=== PATIENT | male | born 1965 | race Two or more races ===

== ENCOUNTER 2016-11-27 21:12 | Emergency (ER) | payer MEDICAID ==
[~2016-11-27] VITALS: Ht 157.5 cm; Wt 97.1 kg
[2016-11-27] MEDS ORDERED: diphenhdrAMINE HCL 50 MG/1 ML VL ONE (21:52)
[2016-11-27] MEDS ORDERED: methylPREDNISolone SOD SUCC 125 MG/2 ML VL ONE (21:53)
[2016-11-27] MEDS ORDERED: diphenhdrAMINE HCL 50 MG/1 ML VL IV ONE (22:00)
[2016-11-27] MEDS ORDERED: methylPREDNISolone SOD SUCC 125 MG/2 ML VL IV ONE (22:00)
[2016-11-27] MEDS ORDERED: VANCOMYCIN 1GM/250ML D5W 250 ML IV ONE (22:15)
[2016-11-27] MEDS ORDERED: cefTRIAXone 1GM/50ML D5W 50 ML IV ONE (22:15)
[2016-11-27 22:37] LABS: Basophils # (auto) 0.2 uL; Basophils % (auto) 1.4 % (0.0-2.0); Eosinophils # (auto) 0.1 uL; Eosinophils % (auto) 0.5 % (0.0-7.0); Hematocrit 44.1 % (41.0-53.0); Hemoglobin 14.9 g/dL (13.5-17.5); Lymphocytes # (auto) 2.9 uL; Lymphocytes % (auto) 24.9 % (10.0-50.0); Mean Corpuscular Hemoglobin 31.1 pg (28.0-32.0); Mean Corpuscular Hgb Conc. 33.8 g/dL (32.0-36.0); Mean Corpuscular Volume 92.2 fL (80.0-100.0); Mean Platelet Volume 10.3 fL (6.9-10.8); Monocytes # (auto) 1.1 uL; Monocytes % (auto) 9.6 % (0.0-12.0); Neutrophils # (auto) 7.3 uL; Neutrophils % (auto) 63.6 % (37.0-80.0); Nucleated Red Blood Cells % 0.1 %; Platelet Count (auto) 131 10^3/uL (140-450); Red Cell Distribution Width 14.6 % (11.8-14.3); White Blood Cell 11.6 10^3/uL (4.4-10.8)
[2016-11-27 22:54] LABS: Albumin 3.2 g/dL (3.4-5.0); Calcium 8.2 mg/dL (8.5-10.1)
[2016-11-27 22:56] LABS: BUN/Creatinine Ratio 14.6
[2016-11-27 23:10] LABS: Bilirubin, Total 0.5 mg/dL (0.2-1.0); Total Protein 6.5 g/dL (6.4-8.2)
[2016-11-28] MEDS ORDERED: InsuLIN REG 1unit/0.01ml Soln (100units/ml) IV ONE (02:15)
[2016-11-28 04:45] VITALS: BP 106/70
== END 2016-11-28 04:46 | disposition home or self-care (01) ==
LOC: ER 21:14
DX: L02.01 Cutaneous abscess of face (principal); L03.211 Cellulitis of face; M19.90 Unspecified osteoarthritis, unspecified site; E11.9 Type 2 diabetes mellitus without complications; E78.5 Hyperlipidemia, unspecified; I10 Essential (primary) hypertension
CPT/HCPCS: 36415; 70486; 80053; 82962; 85025; 96365; 96366; 96367; 96375; 99285; J0696; J1200; J1815; J2930; J3370; J7030

== ENCOUNTER 2018-01-28 13:40 | Emergency (ER) | payer MEDICAID ==
[~2018-01-28] VITALS: Ht 157.5 cm; Wt 86.2 kg
[2018-01-28 14:44] LABS: Urine Bacteria NONE SEEN /hpf (None Seen); Urine Blood Negative /uL (Negative); Urine Specific Gravity 1.006 (1.001-1.035); Urine WBC 1 /hpf (0 - 3)
[2018-01-28 14:57] LABS: Basophils # (auto) 0 uL; Basophils % (auto) 0.3 % (0.0-2.0); Eosinophils # (auto) 0 uL; Eosinophils % (auto) 0.1 % (0.0-7.0); Hematocrit 46.4 % (41.0-53.0); Hemoglobin 15.3 g/dL (13.5-17.5); Lymphocytes # (auto) 2.1 uL; Lymphocytes % (auto) 16.4 % (10.0-50.0); Mean Corpuscular Hemoglobin 29.8 pg (28.0-32.0); Mean Corpuscular Volume 90.5 fL (80.0-100.0); Monocytes # (auto) 0.8 uL; Monocytes % (auto) 6.5 % (0.0-12.0); Neutrophils # (auto) 9.6 uL; Neutrophils % (auto) 76.7 % (37.0-80.0); Platelet Count (auto) 211 10^3/uL (140-450); Red Blood Cells 5.13 10^6/uL (4.5-5.90); Red Cell Distribution Width 15.4 % (11.8-14.3); White Blood Cell 12.5 10^3/uL (4.4-10.8)
[2018-01-28 15:03] LABS: INR 0.95 (0.9-1.15); Prothrombin Time 10.2 sec (9.27-12.13)
[2018-01-28 15:06] LABS: Alanine Aminotransferase 30 U/L (16-61); Albumin 3.7 g/dL (3.4-5.0); Anion Gap 8 (5-15); Blood Urea Nitrogen 14 mg/dL (7-18); Calcium 8.9 mg/dL (8.5-10.1); Carbon Dioxide 25 mmol/L (21-32); Chloride 104 mmol/L (98-107); Glucose 114 mg/dL (74-106); Potassium 4.3 mmol/L (3.5-5.1); Sodium 137 mmol/L (136-145)
[2018-01-28 15:11] LABS: Alkaline Phosphatase 82 U/L (45-117); Aspartate Aminotransferase 15 U/L (15-37); BUN/Creatinine Ratio 10.9; Bilirubin, Total 0.6 mg/dL (0.2-1.0); GFR African American 76 mL/min; GFR Non-African American 62 mL/min; Total Protein 7.6 g/dL (6.4-8.2)
[2018-01-28] MEDS ORDERED: traMADol HCL 50 MG TAB PO ONE (15:45)
[2018-01-28 17:18] VITALS: BP 139/90
== END 2018-01-28 18:37 | disposition home or self-care (01) ==
LOC: ER 13:41
DX: R51 Headache (principal); M06.9 Rheumatoid arthritis, unspecified; H53.8 Other visual disturbances; E11.9 Type 2 diabetes mellitus without complications; E78.5 Hyperlipidemia, unspecified; I10 Essential (primary) hypertension; Z89.519 Acquired absence of unspecified leg below knee
CPT/HCPCS: 36415; 70450; 80053; 81001; 82962; 83880; 84484; 85025; 85610; 85730

== ENCOUNTER → 2018-06-02 | Outpatient (CLI) | payer MEDICAID ==
[2018-06-02 08:37] LABS: Cholesterol 221 mg/dL (< 200)
[2018-06-02 08:39] LABS: HDL Cholesterol 42 mg/dL (40-59); LDL Cholesterol 144 mg/dL (< 100); Triglycerides 318 mg/dL (< 150)
== END | disposition home or self-care (01) ==
LOC: LAB 07:57
PROVIDERS: ATTEND Internal Medicine
DX: E11.9 Type 2 diabetes mellitus without complications (principal); I10 Essential (primary) hypertension
CPT/HCPCS: 36415; 80061; 83036

== ENCOUNTER → 2018-09-29 | Outpatient (CLI) | payer MEDICAID ==
[2018-09-29 09:08] LABS: Albumin 3.6 g/dL (3.4-5.0)
[2018-09-29 09:12] LABS: Bilirubin, Direct 0.1 mg/dL (0-0.2); Bilirubin, Total 0.6 mg/dL (0.2-1.0); Total Protein 7.4 g/dL (6.4-8.2)
== END | disposition home or self-care (01) ==
LOC: LAB 07:58
PROVIDERS: ATTEND Internal Medicine
DX: E11.9 Type 2 diabetes mellitus without complications (principal); I10 Essential (primary) hypertension; M06.9 Rheumatoid arthritis, unspecified
CPT/HCPCS: 36415; 80061; 80076; 83036

== ENCOUNTER → 2019-01-05 | Outpatient (CLI) | payer MEDICAID | END | disposition home or self-care (01) | LOC: LAB 08:19 | PROVIDERS: ATTEND Internal Medicine | DX: E11.9 Type 2 diabetes mellitus without complications (principal) | CPT/HCPCS: 36415; 83036 ==

== ENCOUNTER → 2019-02-07 | Outpatient (CLI) | payer MEDICAID ==
[2019-02-07 08:16] LABS: Basophils # (auto) 0.2 uL; Basophils % (auto) 2.3 % (0.0-2.0); Eosinophils # (auto) 0 uL; Eosinophils % (auto) 0.6 % (0.0-7.0); Hematocrit 47.3 % (41.0-53.0); Hemoglobin 16.1 g/dL (13.5-17.5); Mean Corpuscular Hemoglobin 29.7 pg (28.0-32.0); Mean Corpuscular Hgb Conc. 34.1 g/dL (32.0-36.0); Mean Corpuscular Volume 87.2 fL (80.0-100.0); Monocytes # (auto) 0.5 uL; Monocytes % (auto) 6.3 % (0.0-12.0); Neutrophils # (auto) 5.3 uL; Neutrophils % (auto) 65.8 % (37.0-80.0); Nucleated Red Blood Cells % 0.1 %; Platelet Count (auto) 157 10^3/uL (140-450); Red Blood Cells 5.43 10^6/uL (4.5-5.90); White Blood Cell 8.1 10^3/uL (4.4-10.8)
[2019-02-07 09:47] LABS: Albumin 3.8 g/dL (3.4-5.0); Calcium 8.8 mg/dL (8.5-10.1); Potassium 4.6 mmol/L (3.5-5.1)
[2019-02-07 09:50] LABS: BUN/Creatinine Ratio 10.8; Bilirubin, Total 0.6 mg/dL (0.2-1.0)
== END | disposition home or self-care (01) ==
LOC: LAB 07:50
PROVIDERS: ATTEND Internal Medicine
DX: E11.9 Type 2 diabetes mellitus without complications (principal); K92.2 Gastrointestinal hemorrhage, unspecified; R19.5 Other fecal abnormalities; I10 Essential (primary) hypertension; M19.90 Unspecified osteoarthritis, unspecified site; E78.5 Hyperlipidemia, unspecified; N48.1 Balanitis
CPT/HCPCS: 36415; 80053; 82043; 82306; 85025

== ENCOUNTER → 2019-02-18 | Outpatient (CLI) | payer MEDICAID | END | disposition home or self-care (01) | LOC: LAB 15:43 | PROVIDERS: ATTEND Internal Medicine | DX: E11.9 Type 2 diabetes mellitus without complications (principal); K92.2 Gastrointestinal hemorrhage, unspecified; R19.7 Diarrhea, unspecified | CPT/HCPCS: 82270 ==

== ENCOUNTER 2019-03-10 12:23 | Emergency (ER) | payer MEDICAID | END 2019-03-10 14:15 | disposition left against medical advice (07) | LOC: ER 12:29 | DX: H57.10 Ocular pain, unspecified eye (principal); Z53.21 Procedure and treatment not carried out due to patient leaving prior to being seen by health care provider ==

== ENCOUNTER → 2019-05-02 | Outpatient (CLI) | payer MEDICAID ==
[2019-05-02 10:03] LABS: Potassium 4.5 mmol/L (3.5-5.1)
[2019-05-02 10:08] LABS: BUN/Creatinine Ratio 13.3
== END | disposition home or self-care (01) ==
LOC: LAB 08:42
PROVIDERS: ATTEND Internal Medicine
DX: E11.9 Type 2 diabetes mellitus without complications (principal)
CPT/HCPCS: 36415; 80048; 80061; 83036

== ENCOUNTER → 2019-05-25 | Outpatient (CLI) | payer MEDICAID | END | disposition home or self-care (01) | LOC: LAB 15:36 | PROVIDERS: ATTEND Internal Medicine | DX: R07.9 Chest pain, unspecified (principal) | CPT/HCPCS: 36415; 85379 ==

== ENCOUNTER → 2019-10-14 | Outpatient (CLI) | payer MEDICAID | END | disposition home or self-care (01) | LOC: LAB 07:54 | PROVIDERS: ATTEND Internal Medicine | DX: E11.9 Type 2 diabetes mellitus without complications (principal) | CPT/HCPCS: 36415; 82043; 83036 ==

== ENCOUNTER → 2019-12-16 | Outpatient (CLI) | payer MEDICAID | END | disposition home or self-care (01) | LOC: LAB 08:04 | PROVIDERS: ATTEND Internal Medicine | DX: E11.9 Type 2 diabetes mellitus without complications (principal) | CPT/HCPCS: 36415; 83036 ==

== ENCOUNTER → 2020-04-13 | Outpatient (CLI) | payer MEDICAID ==
[2020-04-13 08:35] LABS: Cholesterol 173 mg/dL (< 200); HDL Cholesterol 40 mg/dL (40-59); LDL Cholesterol 104 mg/dL (< 100); Triglycerides 302 mg/dL (< 150)
== END | disposition home or self-care (01) ==
LOC: LAB 07:09
PROVIDERS: ATTEND Internal Medicine
DX: Z12.5 Encounter for screening for malignant neoplasm of prostate (principal); M06.9 Rheumatoid arthritis, unspecified; M25.521 Pain in right elbow
CPT/HCPCS: 36415; 80061; 83036; 84153

== ENCOUNTER → 2020-07-09 | Outpatient (CLI) | payer MEDICAID | END | disposition home or self-care (01) | LOC: LAB 07:18 | PROVIDERS: ATTEND Internal Medicine | DX: E11.9 Type 2 diabetes mellitus without complications (principal) | CPT/HCPCS: 36415; 83036 ==

== ENCOUNTER → 2020-10-31 | Outpatient (CLI) | payer MEDICAID ==
[2020-10-31 08:49] LABS: Cholesterol 142 mg/dL (< 200)
[2020-10-31 08:52] LABS: HDL Cholesterol 44 mg/dL (40-59); LDL Cholesterol 79 mg/dL (< 100); Triglycerides 162 mg/dL (< 150)
== END | disposition home or self-care (01) ==
LOC: LAB 07:45
PROVIDERS: ATTEND Internal Medicine
DX: E11.9 Type 2 diabetes mellitus without complications (principal)
CPT/HCPCS: 36415; 80061; 82043

== ENCOUNTER → 2021-05-10 | Outpatient (CLI) | payer MEDICAID ==
[2021-05-10 14:36] LABS: Potassium 4.6 mmol/L (3.5-5.1)
[2021-05-10 14:56] LABS: Albumin 3.6 g/dL (3.4-5.0); BUN/Creatinine Ratio 13.5; Calcium 9.2 mg/dL (8.5-10.1)
[2021-05-10 15:43] LABS: Bilirubin, Total 0.7 mg/dL (0.2-1.0); Total Protein 7.6 g/dL (6.4-8.2)
== END | disposition home or self-care (01) ==
LOC: LAB 09:54
PROVIDERS: ATTEND Internal Medicine
DX: Z12.11 Encounter for screening for malignant neoplasm of colon (principal); Z00.00 Encounter for general adult medical examination without abnormal findings; E11.9 Type 2 diabetes mellitus without complications; M06.9 Rheumatoid arthritis, unspecified
CPT/HCPCS: 36415; 80053; 80061; 82043; 83036; 84153

== ENCOUNTER → 2021-06-04 | Outpatient (CLI) | payer MEDICAID | END | disposition home or self-care (01) | LOC: LAB 07:45 | PROVIDERS: ATTEND Internal Medicine | DX: Z12.11 Encounter for screening for malignant neoplasm of colon (principal); Z00.00 Encounter for general adult medical examination without abnormal findings; E11.9 Type 2 diabetes mellitus without complications; M06.9 Rheumatoid arthritis, unspecified | CPT/HCPCS: 82270 ==

== ENCOUNTER → 2021-11-14 | Outpatient (CLI) | payer MEDICAID | END | disposition home or self-care (01) | LOC: LAB 07:48 | PROVIDERS: ATTEND Internal Medicine | DX: E11.9 Type 2 diabetes mellitus without complications (principal) | CPT/HCPCS: 36415; 83036 ==

== ENCOUNTER → 2022-05-05 | Outpatient (CLI) | payer MEDICAID ==
[2022-05-05 12:36] LABS: Basophils # (auto) 0.1 10 ^3/uL (0-0.2); Basophils % (auto) 0.6 % (0.0-2.0); Eosinophils # (auto) 0.1 10 ^3/uL (0-0.8); Eosinophils % (auto) 1.2 % (0.0-7.0); Hematocrit 44.6 % (41.0-53.0); Hemoglobin 15.3 g/dL (13.5-17.5); Lymphocytes # (auto) 3.8 10 ^3/uL (0.4-5.4); Lymphocytes % (auto) 42.3 % (10.0-50.0); Mean Corpuscular Hemoglobin 31.4 pg (28.0-32.0); Mean Corpuscular Hgb Conc. 34.3 g/dL (32.0-36.0); Mean Corpuscular Volume 91.6 fL (80.0-100.0); Monocytes # (auto) 0.7 10 ^3/uL (0-1.3); Monocytes % (auto) 8.3 % (0.0-12.0); Neutrophils # (auto) 4.3 10 ^3/uL (1.6-8.6); Neutrophils % (auto) 47.6 % (37.0-80.0); Nucleated Red Blood Cells % 0.1 %; Red Blood Cells 4.87 10^6/uL (4.5-5.90)
[2022-05-05 12:46] LABS: Urine Bacteria FEW /hpf (None Seen); Urine Blood Negative /uL (Negative); Urine Specific Gravity 1.012 (1.001-1.035); Urine WBC <1 /hpf (0 - 3)
[2022-05-05 12:58] LABS: Albumin 3.6 g/dL (3.4-5.0); Potassium 4.5 mmol/L (3.5-5.1)
[2022-05-05 13:05] LABS: BUN/Creatinine Ratio 13.6; Bilirubin, Total 0.9 mg/dL (0.2-1.0); Calcium 9.2 mg/dL (8.5-10.1); Total Protein 7.5 g/dL (6.4-8.2)
== END | disposition home or self-care (01) ==
LOC: LAB 11:40
PROVIDERS: ATTEND Internal Medicine
DX: Z12.11 Encounter for screening for malignant neoplasm of colon (principal); E11.9 Type 2 diabetes mellitus without complications; M06.9 Rheumatoid arthritis, unspecified
CPT/HCPCS: 36415; 80053; 80061; 81001; 82043; 82270; 83036; 84153; 85025

== ENCOUNTER → 2022-07-21 | Outpatient (CLI) | payer MEDICAID ==
[2022-07-21 08:18] LABS: Albumin 3.5 g/dL (3.4-5.0)
[2022-07-21 08:25] LABS: BUN/Creatinine Ratio 14.8 (10.0-20.0); Bilirubin, Total 0.4 mg/dL (0.2-1.0); Calcium 9.2 mg/dL (8.5-10.1); Total Protein 6.9 g/dL (6.4-8.2)
== END | disposition home or self-care (01) ==
LOC: LAB 07:26
PROVIDERS: ATTEND Internal Medicine
DX: E11.9 Type 2 diabetes mellitus without complications (principal)
CPT/HCPCS: 36415; 80053; 80061; 83036

== ENCOUNTER → 2022-08-07 | Outpatient (CLI) | payer MEDICAID ==
[2022-08-07 13:31] LABS: BUN/Creatinine Ratio 14.2 (10.0-20.0); Calcium 8.9 mg/dL (8.5-10.1); Potassium 4.3 mmol/L (3.5-5.1)
== END | disposition home or self-care (01) ==
LOC: LAB 12:43
PROVIDERS: ATTEND Internal Medicine
DX: E11.9 Type 2 diabetes mellitus without complications (principal)
CPT/HCPCS: 36415; 80048

== ENCOUNTER → 2022-08-22 | Day surgery (SDC) | payer MEDICAID ==
[2022-08-21 09:27] LABS: Basophils # (auto) 0.1 10 ^3/uL (0-0.2); Basophils % (auto) 0.8 % (0.0-2.0); Eosinophils # (auto) 0.1 10 ^3/uL (0-0.8); Eosinophils % (auto) 1.4 % (0.0-7.0); Hematocrit 49.6 % (41.0-53.0); Hemoglobin 16.5 g/dL (13.5-17.5); Lymphocytes # (auto) 2.8 10 ^3/uL (0.4-5.4); Lymphocytes % (auto) 36.5 % (10.0-50.0); Mean Corpuscular Hemoglobin 30.1 pg (28.0-32.0); Mean Corpuscular Hgb Conc. 33.2 g/dL (32.0-36.0); Mean Corpuscular Volume 90.6 fL (80.0-100.0); Monocytes # (auto) 0.8 10 ^3/uL (0-1.3); Monocytes % (auto) 10.4 % (0.0-12.0); Neutrophils # (auto) 3.9 10 ^3/uL (1.6-8.6); Neutrophils % (auto) 50.9 % (37.0-80.0); Red Blood Cells 5.47 10^6/uL (4.5-5.90); Red Cell Distribution Width 14.9 % (11.8-14.3); White Blood Cell 7.7 10^3/uL (4.4-10.8)
[2022-08-21 10:14] LABS: Albumin 3.8 g/dL (3.4-5.0); Calcium 9.3 mg/dL (8.5-10.1)
[2022-08-21 10:17] LABS: BUN/Creatinine Ratio 13.9 (10.0-20.0); Bilirubin, Total 0.5 mg/dL (0.2-1.0); Potassium 5.3 mmol/L (3.5-5.1); Total Protein 7.9 g/dL (6.4-8.2)
[2022-08-21 10:28] LABS: INR 0.92 (0.9-1.15); Partial Thromboplastin Time 27.6 sec (24.6-33.4)
[~2022-08-22] VITALS: Ht 165.1 cm; Wt 89.8 kg
[~2022-08-22] MED LIST: ADAL40IN2 SC; AML5T PO; ATOR20TA50 PO; DexAMETHasone SOD PHOS 10MG/1ML VIAL INJ ONE; ENAL5TAB22 PO; FLUMAZENIL 0.1 MG/ML INJ 10ML MDV IV ONE; FOLI-119 PO; GABA-1308 PO; INS7030I SC; INSUINJ37 SC; MEPERIDINE HCL (25 MG/ML) 1ML VIAL ONE; METF-490 PO; METH2.5T PO; MIDAZOLAM HCL 2MG/2ML 2ml VIAL (1mg/ml) ONE; NALOXONE HCL 0.4 MG/ML VIAL ONE; PRE1T PO; PROPOFOL 10 MG/ML 20 ML IV ONE; fentaNYL CITRATE 100 MCG/2 ML VL ONE
[2022-08-22] MEDS: MIDAZOLAM HCL 2MG/2ML 2ml VIAL (1mg/ml) ONE ×3 (12:17→12:32)
[2022-08-22] MEDS: diphenhdrAMINE HCL 50 MG/1 ML VL ONE ×2 (12:17→12:20)
[2022-08-22] MEDS: fentaNYL CITRATE 100 MCG/2 ML VL ONE ×2 (12:17→12:22)
[2022-08-22 13:15] VITALS: BP 125/78
== END | disposition home or self-care (01) ==
LOC: GI 09:59
PROVIDERS: ATTEND Internal Medicine Gastroenterology
DX: Z12.11 Encounter for screening for malignant neoplasm of colon (principal); K63.5 Polyp of colon; K64.8 Other hemorrhoids; I10 Essential (primary) hypertension; E78.5 Hyperlipidemia, unspecified; M19.90 Unspecified osteoarthritis, unspecified site; E11.9 Type 2 diabetes mellitus without complications; Z79.4 Long term (current) use of insulin; Z79.84 Long term (current) use of oral hypoglycemic drugs; Z79.899 Other long term (current) drug therapy; Z98.890 Other specified postprocedural states
CPT/HCPCS: 36415; 45385; 80053; 82962; 84132; 85025; 85610; 85730; 88305; J1100; J1200; J2250; J2704; J3010; J7030; 99152

== ENCOUNTER → 2022-11-03 | Outpatient (CLI) | payer MEDICAID ==
[~2022-11-03] MED LIST changes: -DexAMETHasone SOD PHOS 10MG/1ML VIAL INJ ONE; -FLUMAZENIL 0.1 MG/ML INJ 10ML MDV IV ONE; -MEPERIDINE HCL (25 MG/ML) 1ML VIAL ONE; -MIDAZOLAM HCL 2MG/2ML 2ml VIAL (1mg/ml) ONE; -NALOXONE HCL 0.4 MG/ML VIAL ONE; -PROPOFOL 10 MG/ML 20 ML IV ONE; -fentaNYL CITRATE 100 MCG/2 ML VL ONE
[2022-11-03 09:05] LABS: Albumin 3.7 g/dL (3.4-5.0); Calcium 9.2 mg/dL (8.5-10.1)
[2022-11-03 09:10] LABS: BUN/Creatinine Ratio 13.4 (10.0-20.0); Bilirubin, Total 0.5 mg/dL (0.2-1.0); Total Protein 7.7 g/dL (6.4-8.2)
== END | disposition home or self-care (01) ==
LOC: LAB 08:18
PROVIDERS: ATTEND Internal Medicine
DX: E11.22 Type 2 diabetes mellitus with diabetic chronic kidney disease (principal); N18.30 Chronic kidney disease, stage 3 unspecified
CPT/HCPCS: 36415; 80053; 80061

== ENCOUNTER → 2023-04-29 | Outpatient (CLI) | payer MEDICAID ==
[2023-04-29 07:52] LABS: Anion Gap 4 (5-15); Carbon Dioxide 28 mmol/L (20-30); Chloride 107 mmol/L (98-107); Sodium 139 mmol/L (136-145)
[2023-04-29 07:53] LABS: Calcium 9.3 mg/dL (8.5-10.1)
[2023-04-29 07:57] LABS: Creatinine, Urine 61.87 mg/dL (30.0-125.0)
[2023-04-29 07:58] LABS: BUN/Creatinine Ratio 11.9 (10.0-20.0); Blood Urea Nitrogen 16 mg/dL (9-23); Glucose 98 mg/dL (74-106); Triglycerides 261 mg/dL (< 150)
[2023-04-29 07:59] LABS: LDL Cholesterol 148 mg/dL (< 100)
[2023-04-29 08:00] LABS: Cholesterol 217 mg/dL (< 200); HDL Cholesterol 40 mg/dL (40-59)
== END | disposition home or self-care (01) ==
LOC: LAB 07:01
PROVIDERS: ATTEND Internal Medicine
DX: E11.9 Type 2 diabetes mellitus without complications (principal)
CPT/HCPCS: 36415; 80048; 80061; 82043; 82570; 83036

== ENCOUNTER → 2023-07-28 | Outpatient (CLI) | payer MEDICAID ==
[2023-07-28 08:45] LABS: Albumin 4.4 g/dL (3.2-4.8)
[2023-07-28 08:46] LABS: Bilirubin, Direct 0.1 mg/dL (<0.3); Bilirubin, Total 0.6 mg/dL (0.2-1.0); Total Protein 7.3 g/dL (5.7-8.2)
== END | disposition home or self-care (01) ==
LOC: LAB 06:10
PROVIDERS: ATTEND Internal Medicine
DX: E11.9 Type 2 diabetes mellitus without complications (principal); E78.5 Hyperlipidemia, unspecified
CPT/HCPCS: 36415; 80061; 80076; 83036

== ENCOUNTER → 2023-11-03 | Outpatient (CLI) | payer MEDICAID | END | disposition home or self-care (01) | LOC: LAB 07:59 | PROVIDERS: ATTEND Internal Medicine | DX: Z12.11 Encounter for screening for malignant neoplasm of colon (principal); E11.22 Type 2 diabetes mellitus with diabetic chronic kidney disease; N18.2 Chronic kidney disease, stage 2 (mild); E78.5 Hyperlipidemia, unspecified | CPT/HCPCS: 82270 ==

== ENCOUNTER → 2023-12-11 | Outpatient (CLI) | payer MEDICAID ==
[2023-12-11 06:17] LABS: Urine Bacteria None Seen /hpf (None Seen)
[2023-12-11 06:42] LABS: Urine Blood Negative /uL (Negative); Urine Clarity Clear (Clear); Urine Color Light-Yellow (Yellow); Urine Protein, UAD TRACE (Negative); Urine Specific Gravity 1.016 (1.001-1.035); Urine Urobilinogen Normal (Negative); Urine WBC <1 /hpf (0 - 3); Urine pH 5.5 (5.0-9.0)
[2023-12-11 07:01] LABS: Chloride 107 mmol/L (98-107); Potassium 4.7 mmol/L (3.5-5.1); Sodium 140 mmol/L (136-145)
[2023-12-11 07:02] LABS: Anion Gap 6 (5-15); Carbon Dioxide 27 mmol/L (20-31)
[2023-12-11 07:03] LABS: Calcium 9.5 mg/dL (8.7-10.4)
[2023-12-11 07:07] LABS: Amylase 148 U/L (30-118); BUN/Creatinine Ratio 11.2 (10.0-20.0); Blood Urea Nitrogen 17 mg/dL (9-23); Glucose 126 mg/dL (74-106)
[2023-12-11 07:09] LABS: CRP High Sensitivity 0.06 mg/dL (<1.0)
[2023-12-11 07:21] LABS: Uric Acid 7.5 mg/dL (3.7-9.2)
[2023-12-11 07:22] LABS: Lipase 51 U/L (12-53)
[2023-12-11 07:46] LABS: Erythrocyte Sedimentation Rate 4 mm/hr (0-20)
== END | disposition home or self-care (01) ==
LOC: LAB 05:59
PROVIDERS: ATTEND Internal Medicine
DX: E11.22 Type 2 diabetes mellitus with diabetic chronic kidney disease (principal); N18.30 Chronic kidney disease, stage 3 unspecified; R10.9 Unspecified abdominal pain; E78.5 Hyperlipidemia, unspecified; M06.9 Rheumatoid arthritis, unspecified
CPT/HCPCS: 36415; 80048; 81001; 82150; 83690; 84550; 85652; 86141

== ENCOUNTER → 2024-02-18 | Outpatient (CLI) | payer MEDICAID ==
[2024-02-18 07:06] LABS: Amylase 160 U/L (30-118)
[2024-02-18 09:25] LABS: Lipase 53 U/L (12-53)
== END | disposition home or self-care (01) ==
LOC: LAB 06:06
PROVIDERS: ATTEND Internal Medicine
DX: E11.9 Type 2 diabetes mellitus without complications (principal); R10.9 Unspecified abdominal pain
CPT/HCPCS: 36415; 82150; 83036; 83690

== ENCOUNTER → 2024-05-24 | Outpatient (CLI) | payer MEDICAID ==
[2024-05-24 07:38] LABS: Alanine Aminotransferase 18 U/L (7-40); Albumin 4.7 g/dL (3.2-4.8); Alkaline Phosphatase 101 U/L (46-116); Anion Gap 8 (5-15); Blood Urea Nitrogen 17 mg/dL (9-23); Calcium 10.1 mg/dL (8.7-10.4); Carbon Dioxide 27 mmol/L (20-31); Chloride 104 mmol/L (98-107); Cholesterol 172 mg/dL (< 200); Potassium 4.1 mmol/L (3.5-5.1); Sodium 139 mmol/L (136-145); Total Protein 7.6 g/dL (5.7-8.2); Triglycerides 108 mg/dL (< 150)
[2024-05-24 07:39] LABS: Aspartate Aminotransferase 10 U/L (13-40); Bilirubin, Total 0.6 mg/dL (0.2-1.0); Glucose 150 mg/dL (74-106); HDL Cholesterol 39 mg/dL (40-59); LDL Cholesterol 118 mg/dL (< 100)
[2024-05-24 07:52] LABS: Creatinine, Urine 70.82 mg/dL (30.0-125.0)
== END | disposition home or self-care (01) ==
LOC: LAB 06:24
PROVIDERS: ATTEND Internal Medicine
DX: E11.9 Type 2 diabetes mellitus without complications (principal); E78.5 Hyperlipidemia, unspecified; K76.0 Fatty (change of) liver, not elsewhere classified
CPT/HCPCS: 36415; 80053; 80061; 82043; 82570; 83036

== ENCOUNTER 2024-08-23 06:37 | Emergency (ER) | payer MEDICAID ==
[~2024-08-23] VITALS: Ht 165.1 cm; Wt 78.9 kg
--- NOTE | 2024-08-23 07:43 | ED.PDOC ---
SOB-HPI HPI Comments 58 y/o Malian speaking M presents with son for 3x day history of flu-like symptoms, that include: fevers, chills, fatigue, back pain, and intermittent shortness of breath. No endorsement of medication use to manage symptoms during 3x day period. Patient admits to 2x known recent sick contacts at home. He reports significant history of DMII and rheumatoid arthritis. Denies history of pneumonia or recent international travel. Patient denies any night sweats, unintentional weight loss, chest pain, leg swelling, cough, or further associated symptoms. Chief Complaint: Flu like Time Seen by MD: 07:30 Primary Care Provider: AGUSTOK Reviewed notes: Nurses Notes, Medications, Allergies Information Source: Patient, Relative (Child) Mode of Arrival: Ambulatory Severity: Mild Timing: Days Duration: Since onset Past Medical History PAST MEDICAL HISTORY: Arthritis (rheumatoid ), DM (type II), High Lipids, HTN Surgical History: BKA, Denies all surgeries Family History Family History: Unknown Family History (Other): arthritis Social History Smoker: Non-Smoker Alcohol: Denies ETOH Use Drugs: Denies Drug Use Lives In: Home All Other Systems: Reviewed and Negative (As per HPI) Physical Exam General Appearance: No Apparent Distress, Normal HEENT: Normal ENT Inspection, TMs Normal, Other (MMM, uvula midline, no airway obstruction) Neck: Full Range of Motion, Non-Tender, Normal, Normal Inspection Respiratory: Chest Non-Tender, Lungs Clear, No Accessory Muscle Use, No Respiratory Distress, Normal Breath Sounds Cardiovascular: No Edema, No JVD, No Murmur, No Gallop, Normal Peripheral Pulses, Regular Rate/Rhythm Breast Exam: Deferred Gastrointestinal: No Organomegaly, Non Tender, No Pulsatile Mass, Normal Bowel Sounds, Soft Genitalia: Deferred Pelvic: Deferred Rectal: Deferred Extremities: No calf tenderness, Normal capillary refill, Normal inspection, Normal range of motion, Non-tender, No pedal edema Musculoskeletal : Apperance: Normal Neurologic: Alert, 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 Was a procedure done?: No Differential Dx Differential Diagnosis: Anxiety, Bronchitis, Panic Attack, Pneumonia, Respiratory Distress, Pharyngitis, URI X-Ray, Labs, Meds, VS Vital Signs Date Time Temp Pulse Resp B/P (MAP) Pulse Ox O2 Delivery O2 Flow Rate FiO2 08/23/24 08:39 98.9 65 16 122/68 (86) 96 98.9 08/23/24 08:39 68 16 96 Room Air 08/23/24 07:00 98.5 92 16 126/69 (88) 96 98.5 Lab Test 08/23/24 07:49 08/23/24 06:50 Range/Units White Blood Count 5.1 4.4-10.8 10^3/uL Red Blood Count 5.34 4.5-5.90 10^6/uL Hemoglobin 16.5 13.5-17.5 g/dL Hematocrit 48.6 41.0-53.0 % Mean Corpuscular Volume 91.0 80.0-100.0 fL Mean Corpuscular Hemoglobin 30.9 28.0-32.0 pg Mean Corpuscular Hemoglobin Concent 34.0 32.0-36.0 g/dL Red Cell Distribution Width 14.2 11.8-14.3 % Platelet Count 195 140-450 10^3/uL Mean Platelet Volume 8.2 6.9-10.8 fL Neutrophils (%) (Auto) 68.2 37.0-80.0 % Lymphocytes (%) (Auto) 19.6 10.0-50.0 % Monocytes (%) (Auto) 11.8 0.0-12.0 % Eosinophils (%) (Auto) 0.0 0.0-7.0 % Basophils (%) (Auto) 0.4 0.0-2.0 % Neutrophils # (Auto) 3.5 1.6-8.6 10 ^3/uL Lymphocytes # (Auto) 1.0 0.4-5.4 10 ^3/uL Monocytes # (Auto) 0.6 0-1.3 10 ^3/uL Eosinophils # (Auto) 0 0-0.8 10 ^3/uL Basophils # (Auto) 0 0-0.2 10 ^3/uL Nucleated Red Blood Cells 0.1 % Sodium Level 137 136-145 mmol/L Potassium Level 4.5 3.5-5.1 mmol/L Chloride Level 101 98-107 mmol/L Carbon Dioxide Level 26 20-31 mmol/L Anion Gap 10 5-15 Blood Urea Nitrogen 22 9-23 mg/dL Creatinine 1.71 H 0.700-1.30 mg/dL Glomerular Filtration Rate Calc 46 >90 mL/min BUN/Creatinine Ratio 12.9 10.0-20.0 Serum Glucose 189 H 74-106 mg/dL Calcium Level 10.3 8.7-10.4 mg/dL Influenza Type A Antigen Negative Negative Influenza Type B Antigen Negative Negative SARS-CoV-2 Antigen (Rapid) Negative NEGATIVE [place] [id number] Ph: [phone] DIAGNOSTIC IMAGING Diagnostic Imaging Report : [id number] Signed PATIENT: MARIO KAUR ACCT: [id number] UNIT: [id number] : 1965 LOC: ER ROOM / BED: / AGE / SEX: 58 / M ADM STATUS: REG ER SERVICE [id number] ORDERING PHYSICIAN: ANCELMO HOPKINS NP PROCEDURE(s): CXR2 - CHEST TWO VIEWS ROUTINE REASON: Cough, fevers, R/o pna ORDER NUMBER(s): [id number], ACCESSION NUMBER(s): [id number] XY CHEST TWO VIEWS ROUTINE CLINICAL HISTORY: Cough, fevers, R/o pna COMPARISON: None TECHNIQUE: Frontal and lateral view of the chest was obtained FINDINGS: Lines and Tubes: None Lungs: No focal consolidation. Pleura: No effusion. No pneumothorax. Cardiomediastinal contours: Unremarkable Bones: No acute osseous abnormality. IMPRESSION: 1. No acute cardiopulmonary disease. ATED BY: JESSICA BOOTH MD DICTATED DATE/TIME: 08/23/24803 SIGNED BY: JESSICA BOOTH MD SIGNED DATE/TIME: 08/23/24803 CC: X-Ray, Labs, Meds, VS Comment 58 y/o Malian speaking M presents with son for 3x day history of flu-like symptoms, that include: fevers, chills, fatigue, back pain, and intermittent shortness of breath Patient arrives alert and oriented, ABC's intact, afebrile, vital signs stable, saturating well in room air Labs were ordered. CBC was ordered to exclude anemia, blood loss, or infection. BMP was ordered to exclude electrolyte abnormalities, renal failure, dehydration, hyperglycemia Influenza and COVID tests were ordered Diagnostic imaging ordered by me and results interpreted by radiology: Chest x- ray ordered Labs in the ED showed: GFR 46, creatinine of 1.71. Due to patient being immunocompromised, I will prescribed a patient Augmentin BID for 7x days. The patient is overall well-appearing nontoxic on exam. On physical exam, respirations even and unlabored, clear to auscultation bilaterally. Oxygen stable on room air. Chest x-ray was obtained and interpreted independently by myself as not showing focal consolidation or lobar pneumonia Low suspicion of strep pharyngitis given physical exam findings and patient's presenting symptoms No signs of meningismus on exam Overall, the patient is well hydrated and nontoxic. Plan for symptomatic control for fever and pain as needed. The patient was able to tolerate p.o. intake in the ED. at this time, patient is safe for discharge home. The exam findings and plan discussed. We will discharge home with PCP follow up and strict return precautions. Additional MDM Review of External, Non-ED records: External records reviewed. Discussion with independent historian (EMS, family) history obtained from the patient/parents (if applicable) at bedside Chronic conditions affecting care: DM and RA Social determinants of health affecting care: None Consideration of admission (observation or admission): I considered escalation of care to admission for this patient, however given the reassuring workup, the patient is safe for outpatient management. Time of 1ST Reevaluation: 07:30 Reevaluation 1ST: Unchanged Patient Education/Counseling: Diagnosis, Treatment, Need For Follow Up Family Education/Counseling: Diagnosis, Treatment, Need For Follow Up Departure 1 Departure Time of Disposition: 08:30 Impression: Primary Impression: Viral syndrome Disposition: 01 HOME / SELF CARE / HOMELESS Condition: Fair e-Prescriptions Amoxicillin & Pot Clavulanate (AUGMENTIN TABLET) 875 Mg Tb 875 MG PO BID for 7 Days, #14 TAB 0 Refills Prov: ANCELMO HOPKINS NP 08/23/24 Discharged With: Relative (son) Critical Care Note Critical Care Time?: No Stability Stability form required: No Heart Score Heart Score: Heart Score Response (Comments) Value History N/A 0 EKG N/A 0 Age N/A 0 Risk Factors N/A 0 Troponin N/A 0 Total 0 I personally scribed for ANCELMO HOPKINS NP ([email or web address]) on 08/23/24 at 07:43. Electronically submitted by Maik Love ([email or web address]). I personally scribed for ANCELMO HOPKINS NP ([email or web address]) on 08/23/24 at 08:45. Electr onically submitted by Maik Love ([email or web address]). ANCELMO HOPKINS NP Aug 23, 2024 07:43
[2024-08-23 07:46] LABS: COVID19 ANTIGEN SOFIA FIA NEGATIVE (NEGATIVE); Rapid Influenza A Negative (Negative); Rapid Influenza B Negative (Negative)
--- NOTE | 2024-08-23 08:07 | DVH ---
XY CHEST TWO VIEWS ROUTINE CLINICAL HISTORY: Cough, fevers, R/o pna COMPARISON: None TECHNIQUE: Frontal and lateral view of the chest was obtained FINDINGS: Lines and Tubes: None Lungs: No focal consolidation. Pleura: No effusion. No pneumothorax. Cardiomediastinal contours: Unremarkable Bones: No acute osseous abnormality. IMPRESSION: 1. No acute cardiopulmonary disease.
[2024-08-23 08:12] LABS: Basophils # (auto) 0 10 ^3/uL (0-0.2); Basophils % (auto) 0.4 % (0.0-2.0); Eosinophils # (auto) 0 10 ^3/uL (0-0.8); Hematocrit 48.6 % (41.0-53.0); Hemoglobin 16.5 g/dL (13.5-17.5); Lymphocytes % (auto) 19.6 % (10.0-50.0); Mean Corpuscular Hemoglobin 30.9 pg (28.0-32.0); Monocytes # (auto) 0.6 10 ^3/uL (0-1.3); Monocytes % (auto) 11.8 % (0.0-12.0); Neutrophils # (auto) 3.5 10 ^3/uL (1.6-8.6); Neutrophils % (auto) 68.2 % (37.0-80.0); Nucleated Red Blood Cells % 0.1 %; Platelet Count (auto) 195 10^3/uL (140-450); Red Blood Cells 5.34 10^6/uL (4.5-5.90); Red Cell Distribution Width 14.2 % (11.8-14.3); White Blood Cell 5.1 10^3/uL (4.4-10.8)
[2024-08-23 08:19] LABS: Chloride 101 mmol/L (98-107); Potassium 4.5 mmol/L (3.5-5.1); Sodium 137 mmol/L (136-145)
[2024-08-23 08:20] LABS: Anion Gap 10 (5-15); Calcium 10.3 mg/dL (8.7-10.4); Carbon Dioxide 26 mmol/L (20-31)
[2024-08-23 08:25] LABS: BUN/Creatinine Ratio 12.9 (10.0-20.0); Blood Urea Nitrogen 22 mg/dL (9-23)
[2024-08-23] MEDS ORDERED: AUG875T PO (08:30)
[2024-08-23 08:36] LABS: Glucose 189 mg/dL (74-106)
[2024-08-23 08:39] VITALS: BP 122/68; PULSE 68; RESP 16; TEMP 98.9; O2SAT 96
== END 2024-08-23 08:42 | disposition home or self-care (01) ==
LOC: ER 06:37
DX: B34.9 Viral infection, unspecified (principal); E11.9 Type 2 diabetes mellitus without complications; I10 Essential (primary) hypertension; E78.5 Hyperlipidemia, unspecified; M06.9 Rheumatoid arthritis, unspecified; Z20.822 Contact with and (suspected) exposure to COVID-19
CPT/HCPCS: 36415; 71046; 80048; 85025; 87426; 87804

== ENCOUNTER 2024-08-29 17:59 | Inpatient (IN) | payer MEDICAID ==
[~2024-08-29] VITALS: Ht 162.6 cm; Wt 86.0 kg
[~2024-08-29 17:59] MED LIST changes: +ADAL40KI2 SC; +ATOR40TA52 PO; +AUG875T PO; +EMPA1TAB PO; +EZET-10 PO; +FENO48TA13 PO; +FINE10TA PO; +METH2.5T62 PO; +PANT40T PO
--- NOTE | 2024-08-29 18:38 | ED.PDOC ---
History of Present Illness HPI Comments 58 year old male presents to the ED with a chief complaint of fevers onset 2 weeks. Son states the patient has been experiencing fevers, chills, headache, neck pain, chills, sweats, loss of appetite, fatigue for the past 2 weeks, began experiencing cough 4 days ago. Patient was seen in this ED on 08/23/24, was prescribed Augmentin. Patient has been taking medication as prescribed, has not noticed an improvement on symptoms. He returned from work today, son noticed patient appeared lethargic, was brought to the ED. PMHx arthritis, DM, HTN, HLD. No other symptoms or modifying factors present at this time. Chief Complaint: Flu like Time Seen by MD: 18:30 Primary Care Provider: ANGY Reviewed Notes: Medications, Allergies Allergies: Coded Allergies: NO KNOWN ALLERGIES (Unverified , 04/11/14) Home Meds Active Scripts Amoxicillin & Pot Clavulanate (AUGMENTIN TABLET) 875 Mg Tb, 875 MG PO BID for 7 Days, #14 TAB 0 Refills Prov:ANCELMO HOPKINS [employer] 08/23/24 Reported Medications Enalapril Maleate (Enalapril Maleate) 5 Mg Tab, 5 MG PO DAILY, TAB 08/21/22 Prednisone (PREDNISONE) 1 Mg Tb, 8 TAB PO DAILY, #120 TAB 3 Refills 08/21/22 Methotrexate (Methotrexate) 2.5 Mg Tab, 2.5 MG PO QWEEKLY, #7 TAB 08/21/22 Metformin Hydrochloride (METFORMIN HCL ER) 1,000 Mg Tab, 1000 MG PO BIDBRS, TAB 08/21/22 Insulin Glargine (Lantus Solostar) 100 Unit/Ml Inj, 20 UNIT SC BID, INJ 08/21/22 Insulin Isophane & Reg (Human) (Humulin 70/30 (70-30) 100 Unit/ml) 1 Units/0.01 Ml Inj, 5 UNITS SC QAM, INJ 08/21/22 Adalimumab (Humira Pen) 40 Mg/0.4 Ml Inj, 40 MG SC, INJ 08/21/22 Gabapentin (Gabapentin) 100 Mg Cap, 100 MG PO TID, CAP 08/21/22 Folic Acid (Folic Acid) 1 Mg Tab, 1 MG PO DAILY, TAB 08/21/22 Atorvastatin Calcium (ATORVASTATIN CALCIUM) 20 Mg Tab, 20 MG PO DAILY, TAB 08/21/22 Amlodipine Besylate (NORVASC TABLET) 5 Mg Tb, 5 MG PO DAILY, TAB 08/21/22 Information Source: Patient, Relative (Child) Mode of Arrival: Ambulatory Severity: Moderate Timing: Weeks Duration: Since onset Prehospital treatment: Treatment (Augmentin) Past Medical History PAST MEDICAL HISTORY: Arthritis, DM, High Lipids, HTN Surgical History: BKA, Denies all surgeries Family History Family History: Unknown Family History (Other): arthritis Social History Smoker: Non-Smoker Alcohol: Denies ETOH Use Drugs: Denies Drug Use Lives In: Home Constitutional: reports: chills, fatigue, fever, sweats; denies: diaphoresis, malaise, weakness, others EENTM: denies: blurred vision, double vision, ear bleeding, ear discharge, ear drainage, ear pain, ear ringing, eye pain, eye redness, hearing loss, mouth pain, mouth swelling, nasal discharge, nose bleeding, nose congestion, nose pain, photophobia, tearing, throat pain, throat swelling, voice changes, others Respiratory: denies: cough, hemoptysis, orthopnea, SOB at rest, shortness of breath, SOB with excertion, stridor, wheezing, others Cardiovascular: denies: chest pain, dizzy spells, diaphoresis, Dyspnea on exertion, edema, irregular heart beat, left arm pain, lightheadedness, palpitations, PND, syncope, others Gastrointestinal: reports: poor appetite; denies: abdomen distended, abdominal pain, blood streaked bowels, constipated, diarrhea, dysphagia, difficulty swallowing, hematemesis, melena, nausea, poor fluid intake, rectal bleeding, rectal pain, vomiting, others Genitourinary: denies: burning, dysuria, flank pain, frequency, hematuria, incontinence, penile discharge, penile sore, pain, testicle pain, testicle swelling, urgency, others Neurological: reports: headache; denies: dizziness, fainting, left sided numbness, left sided weakness, numbness, paresthesia, pre-existing deficit, right sided numbness, right sided weakness, seizure, speech problems, tingling, tremors, weakness, others Musculoskeletal: reports: neck pain; denies: back pain, gout, joint pain, joint swelling, muscle pain, muscle stiffness, others Integumetry: denies: bruises, change in color, change in hair/nails, dryness, laceration, lesions, lumps, rash, wounds, others Allergic/Immunocompromised: denies: Difficulty Healing, Frequent Infections, Hives, Itching, others Hematologic/Lymphatic: denies: anemia, blood clots, easy bleeding, easy bruising, swollen glands, others Endocrine: denies: excessive hunger, excessive sweating, excessive thirst, excessive urination, flushing, intolerance to cold, intolerance to heat, unexplained weight gain, unexplained weight loss, others Psychiatric: denies: anxiety, bipolar disorder, depression, hopeless, panic disorder, schizophrenia, sleepless, suicidal, others All Other Systems: Reviewed and Negative Physical Exam General Appearance: Normal HEENT: Normal ENT Inspection, Pharynx Normal, TMs Normal Neck: Full Range of Motion, Non-Tender, Normal, Normal Inspection Respiratory: Chest Non-Tender, Lungs Clear, No Accessory Muscle Use, No Respiratory Distress, Normal Breath Sounds Cardiovascular: No Edema, No JVD, No Murmur, No Gallop, Normal Peripheral Puls es, Regular Rate/Rhythm Breast Exam: Deferred Gastrointestinal: No Organomegaly, Non Tender, No Pulsatile Mass, Normal Bowel Sounds, Soft Genitalia: Deferred Pelvic: Deferred Rectal: Deferred Extremities: No calf tenderness, Normal capillary refill, Normal inspection, Normal range of motion, Non-tender, No pedal edema Musculoskeletal : Apperance: Normal 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 Was a procedure done?: No Differential Dx Considerations may include: Differential diagnosis includes but is not limited to: dehydration, sepsis, electrolyte abnormality, symptomatic anemia, hypovolemia and others X-Ray, Labs, Meds, VS Vital Signs Date Time Temp Pulse Resp B/P (MAP) Pulse Ox O2 Delivery O2 Flow Rate FiO2 08/29/24 18:20 99.6 102 18 114/71 (85) 95 99.6 Lab Test 08/29/24 19:04 08/29/24 18:25 Range/Units White Blood Count 6.2 4.4-10.8 10^3/uL Red Blood Count 5.11 4.5-5.90 10^6/uL Hemoglobin 15.8 13.5-17.5 g/dL Hematocrit 46.1 41.0-53.0 % Mean Corpuscular Volume 90.0 80.0-100.0 fL Mean Corpuscular Hemoglobin 30.9 28.0-32.0 pg Mean Corpuscular Hemoglobin Concent 34.3 32.0-36.0 g/dL Red Cell Distribution Width 14.2 11.8-14.3 % Platelet Count 225 140-450 10^3/uL Mean Platelet Volume 8.1 6.9-10.8 fL Neutrophils (%) (Auto) 70.3 37.0-80.0 % Lymphocytes (%) (Auto) 16.6 10.0-50.0 % Monocytes (%) (Auto) 12.7 H 0.0-12.0 % Eosinophils (%) (Auto) 0.1 0.0-7.0 % Basophils (%) (Auto) 0.3 0.0-2.0 % Neutrophils # (Auto) 4.3 1.6-8.6 10 ^3/uL Lymphocytes # (Auto) 1.0 0.4-5.4 10 ^3/uL Monocytes # (Auto) 0.8 0-1.3 10 ^3/uL Eosinophils # (Auto) 0 0-0.8 10 ^3/uL Basophils # (Auto) 0 0-0.2 10 ^3/uL Nucleated Red Blood Cells 0.1 % Sodium Level 135 L 136-145 mmol/L Potassium Level 4.7 3.5-5.1 mmol/L Chloride Level 100 98-107 mmol/L Carbon Dioxide Level 24 20-31 mmol/L Anion Gap 11 5-15 Blood Urea Nitrogen 27 H 9-23 mg/dL Creatinine 1.91 H 0.700-1.30 mg/dL Glomerular Filtration Rate Calc 40 >90 mL/min BUN/Creatinine Ratio 14.1 10.0-20.0 Serum Glucose 162 H 74-106 mg/dL Lactic Acid Level 1.4 0.4-2.0 mmol/L Calcium Level 9.4 8.7-10.4 mg/dL Total Bilirubin 0.5 0.2-1.0 mg/dL Aspartate Amino Transferase (AST) 25 <34 U/L Alanine Aminotransferase (ALT) 41 H 7-40 U/L Alkaline Phosphatase 98 46-116 U/L Total Protein 7.7 5.7-8.2 g/dL Albumin 4.6 3.2-4.8 g/dL Urine Color Light-yellow Yellow Urine Clarity Clear Clear Urine pH 5.5 5.0-9.0 Urine Specific [place] 1.029 1.001-1.035 Urine Protein Negative Negative Urine Ketones Negative Negative Urine Blood Negative Negative /uL Urine Nitrite Negative Negative Urine Bilirubin Negative Negative Urine Urobilinogen Normal Negative mg/dL Urine Leukocyte Esterase Negative Negative /uL Urine RBC 1 0 - 3 /hpf Urine Microscopic WBC 1 0-3 /HPF Urine Squamous Epithelial Cells None seen <5 /hpf Urine Bacteria None seen None Seen /hpf Urine Glucose 4+ H Normal mg/dL [place] [id number] Ph: [phone] DIAGNOSTIC IMAGING Diagnostic Imaging Report : [id number] Signed PATIENT: MARIO KAUR ACCT: [id number] UNIT: [id number] : 1965 LOC: ER ROOM / BED: / AGE / SEX: 58 / M ADM STATUS: REG ER SERVICE 31 ORDERING PHYSICIAN: ANNABEL SUAZO MD PROCEDURE(s): CXRP - CHEST PORTABLE REASON: cough, fever ORDER NUMBER(s): [id number], ACCESSION NUMBER(s): [id number] CHEST XRAY: 1 view(s) was obtained HISTORY: 58 years old, Male; cough, fever. COMPARISON: None. FINDINGS: Expansion: Normal. Lungs parenchyma: The lungs are clear. Pleura: No pleural effusion. No pneumothorax. Mediastinum: Heart size is normal. Chest Wall, Upper Abdomen and Lower Neck: Unremarkable. IMPRESSION: 1. No acute cardiopulmonary abnormality. ATED BY: OCTAVIO DE LA VEGA MD DICTATED DATE/TIME: 08/29/241902 SIGNED BY: OCTAVIO DE LA VEGA MD SIGNED DATE/TIME: 08/29/241902 CC: [place] [id number] Ph: [phone] DIAGNOSTIC IMAGING Diagnostic Imaging Report : [id number] Signed PATIENT: MARIO KAUR ACCT: [id number] UNIT: [id number] : 1965 LOC: ER ROOM / BED: / AGE / SEX: 58 / M ADM STATUS: REG ER SERVICE 31 ORDERING PHYSICIAN: ANNABEL SUAZO MD PROCEDURE(s): HWOCT - HEAD WITHOUT CONTRAST REASON: headache ORDER NUMBER(s): [id number], ACCESSION NUMBER(s): [id number] EXAM: CT Head Without Intravenous Contrast CLINICAL INDICATION: headache TECHNIQUE: Axial computed tomography images of the head/brain without intravenous contrast. This CT exam was performed using one or more of the following dose reduction techniques: automated exposure control, adjustment of the mA and/or kV according to patient size, and/or use of iterative reconstruction technique. CONTRAST: RADIATION DOSE: CTDIvol = 53.1 mGy, DLP = 1063.53 mGy-cm COMPARISON: None FINDINGS: BRAIN AND EXTRA-AXIAL SPACES: No acute intracranial hemorrhage, midline shift or mass effect. If symptoms persist, further evaluation with MRI is recommended. No significant white matter disease. BONES/JOINTS: Unremarkable. No acute fracture. SOFT TISSUES: Unremarkable. SINUSES: Mucosal thickening of the right maxillary sinus, likely sinus disease. MASTOID AIR CELLS: Unremarkable as visualized. No mastoid effusion. OTHER FINDINGS: . IMPRESSION: No acute intracranial hemorrhage, midline shift or mass effect. If symptoms persist, further evaluation with MRI is recommended. ATED BY: MILVIA HUBER MD DICTATED DATE/TIME: 08/29/241903 SIGNED BY: MILVIA HUBER MD SIGNED DATE/TIME: 08/29/241903 CC: Time of 1ST Reevaluation: 19:00 Reevaluation 1ST: Unchanged Patient Education/Counseling: Diagnosis, Treatment, Prognosis Family Education/Counseling: Diagnosis, Treatment, Prognosis Sepsis focused exam: focus exam completed (In the initial resuscitation at least 30 mL/kg of IV crystalloid fluid was NOT given within the first 3 hr due to concerns of fluid overload), time: (1999) SEPSIS Sepsis Screen Date sepsis recognized/suspect: Aug 29, 2024 Time Sepsis recognized/suspect: 1819 Recent Procedure: No On Antibiotic Therapy: No Respiratory Rate >20: No Heart Rate >90: Yes (102) Temp<36 C (96.8 F) or >38.3 C: No SBP <90 or MAP <65 mmHG: No New Acute Mental Status Change: No Is the patient on CPAP, BIPAP,: No Orders/Vitals/Labs Physician Orders Blood Culture (08/29/24 18:32) Chest Portable (08/29/24 18:32) Covid19 Antigen Kaylyn (08/29/24 ) Rapid Influenza A&B (08/29/24 18:32) Head Without Contrast (08/29/24 18:32) Vital Signs Date Time Temp Pulse Resp B/P (MAP) Pulse Ox O2 Delivery O2 Flow Rate FiO2 08/29/24 18:20 99.6 102 18 114/71 (85) 95 99.6 Laboratory Tests Test 08/29/24 19:04 Lactic Acid Level 1.4 mmol/L (0.4-2.0) White Blood Count 6.2 10^3/uL (4.4-10.8) Departure 1 Departure Time of Disposition: 20:21 Impression: Primary Impression: SIRS (systemic inflammatory response syndrome) Additional Impressions: Dehydration Acute renal injury Disposition: ADMITTED INPATIENT Condition: Guarded Comments Persistent Fever with Acute Renal Injury Chief Complaint: Persistent fever for two weeks with worsening symptoms History of Present Illness: The patient is a 58-year-old male presenting with a two-week history of intermittent fevers accompanied by chills, malaise, and dull frontal headache. Over the past two days, his symptoms have significantly worsened. Family members report decreased appetite, persistent fevers, and increased malaise. The patient has been taking Augmentin without clinical improvement. He presents today due to progressive deterioration of his condition despite outpatient antibiotic therapy. Review of Systems: Constitutional: Positive for fever, chills, malaise, and decreased appetite. Neurological: Positive for dull frontal headache. No meningeal signs. Respiratory: No cough, shortness of breath, or other respiratory symptoms noted. Gastrointestinal: Decreased appetite. No nausea, vomiting, or abdominal pain reported. Genitourinary: No dysuria, frequency, or other urinary symptoms mentioned. All other systems: Deferred or unremarkable based on available information. Medications: Augmentin (amoxicillin/clavulanate) - recently prescribed for current illness Other home medications: Not specified in bias cutter helper Physical Exam: General: Patient appears uncomfortable. HEENT: No meningeal signs. Respiratory: Lungs are clear to auscultation. Other systems: Not documented in bias cutter helper. Lab Results: CBC: - WBC: 6.2 (normal) - Hemoglobin: 16 g/dL (normal) - Hematocrit: 46% (normal) Chemistry Panel: - BUN: 27 mg/dL (elevated) - Creatinine: 1.91 mg/dL (elevated), consistent with acute renal injury - Glucose: 162 mg/dL (slightly elevated) Urinalysis: - Positive for glucose - No signs of infection Imaging and Other Relevant Results: Chest X-ray: No acute pathology identified. Head CT: No acute intracranial pathology identified. Medical Decision Making: Summary Statement: 58-year-old male with two-week history of persistent fevers, chills, and malaise, now presenting with worsening symptoms, acute renal injury, and signs of systemic inflammatory response despite outpatient antibiotic therapy. Problem List: 1. Persistent fever of unknown origin 2. Acute renal injury 3. Dehydration 4. SIRS (Systemic Inflammatory Response Syndrome) 5. Hyperglycemia Differential Diagnosis: 1. Occult infection (urinary, intra-abdominal, endocar ditis) 2. Drug-induced fever (possibly from Augmentin) 3. Malignancy with paraneoplastic syndrome 4. Autoimmune disorder 5. Viral syndrome with secondary dehydration and renal injury ED Course: Patient received IV fluid bolus for dehydration and acute renal injury. Broad-spectrum antibiotics were initiated. Laboratory studies revealed normal WBC count but evidence of acute renal injury. Imaging studies including chest X-ray and head CT showed no acute pathology. Decision made to admit for further workup and management of SIRS, acute renal injury, and dehydration. Assessment and Plan: 1. Persistent Fever/SIRS: - Admit to medical floor for continued monitoring and workup - Initiate broad-spectrum antibiotics pending culture results - Consider infectious disease consultation if no clear source identified within 24 hours - Blood cultures x2, urine culture, and additional infectious workup as indicated 2. Acute Renal Injury: - Likely pre-renal due to dehydration - IV fluid resuscitation with normal saline - Monitor urine output and serial renal function tests - Avoid nephrotoxic medications 3. Dehydration: - Aggressive IV fluid rehydration - Monitor electrolytes and replace as needed - Encourage oral intake as tolerated 4. Hyperglycemia: - Monitor blood glucose levels - Consider HbA1c to evaluate for underlying diabetes - Manage with sliding scale insulin if needed 5. Disposition: Admit to medical floor with continued monitoring and reassessment Additional Notes: Patient admitted for SIRS syndrome, acute renal injury, and dehydration Billing Information: ICD-10: R50.9 - Fever, unspecified ICD-10: N17.9 - Acute kidney failure, unspecified ICD-10: E86.0 - Dehydration ICD-10: R65.10 - Systemic inflammatory response syndrome (SIRS) of non- infectious origin without acute organ dysfunction Critical Care Note Critical Care Time?: Yes (35 min-critical care time only) Critical care comment: Total critical care time: Approximately 36 minutes Due to a high probability of clinically significant, life threatening deterioration, the patient required my highest level of preparedness to intervene emergently and I personally spent this critical care time directly and personally managing the patient. This critical care time included obtaining a history; examining the patient; pulse oximetry; ordering and review of studies; arranging urgent treatment with development of a management plan; evaluation of patient's response to treatment; frequent reassessment; and, discussions with other providers. This critical care time was performed to assess and manage the high probability of imminent, life-threatening deterioration that could result in multi-organ failure. It was exclusive of separately billable procedures and treating other p atients. Stability Stability form required: No Heart Score Heart Score: Heart Score Response (Comments) Value History N/A 0 EKG N/A 0 Age N/A 0 Risk Factors N/A 0 Troponin N/A 0 Total 0 I personally scribed for ANNABEL SUAZO MD ([email or web address]) on 08/29/24 at 18:38. Electronically submitted by Theresa Whitfield ([email or web address]). I personally scribed for ANNABEL SUAZO MD ([email or web address]) on 08/29/24 at 19:28. Electronically submitted by Theresa Whitfield ([email or web address]). ANNABEL SUAZO MD Aug 29, 2024 18:38
[2024-08-29] MEDS ORDERED: PIPERACILLIN-TAZOB 3.375GM 100 ML IV ONE (18:45)
[2024-08-29 18:57] LABS: Urine Bacteria None Seen /hpf (None Seen)
--- NOTE | 2024-08-29 19:06 | DVH ---
CHEST XRAY: 1 view(s) was obtained HISTORY: 58 years old, Male; cough, fever. COMPARISON: None. FINDINGS: Expansion: Normal. Lungs parenchyma: The lungs are clear. Pleura: No pleural effusion. No pneumothorax. Mediastinum: Heart size is normal. Chest Wall, Upper Abdomen and Lower Neck: Unremarkable. IMPRESSION: 1. No acute cardiopulmonary abnormality.
--- NOTE | 2024-08-29 19:07 | DVH ---
EXAM: CT Head Without Intravenous Contrast CLINICAL INDICATION: headache TECHNIQUE: Axial computed tomography images of the head/brain without intravenous contrast. This CT exam was performed using one or more of the following dose reduction techniques: automated exposure control, adjustment of the mA and/or kV according to patient size, and/or use of iterative reconstru ction technique. CONTRAST: RADIATION DOSE: CTDIvol = 53.1 mGy, DLP = 1063.53 mGy-cm COMPARISON: None FINDINGS: BRAIN AND EXTRA-AXIAL SPACES: No acute intracranial hemorrhage, midline shift or mass effect. If sy mptoms persist, further evaluation with MRI is recommended. No significant white matter disease. BONES/JOINTS: Unremarkable. No acute fracture. SOFT TISSUES: Unremarkable. SINUSES: Mucosal thickening of the right maxillary sinus, likely sinus disease. MASTOID AIR CELLS: Unremarkable as visualized. No mastoid effusion. OTHER FINDINGS: . IMPRESSION: No acute intracranial hemorrhage, midline shift or mass effect. If symptoms persist, further evaluat ion with MRI is recommended.
[2024-08-29 19:17] LABS: Urine Blood Negative /uL (Negative); Urine Clarity Clear (Clear); Urine Color Light-Yellow (Yellow); Urine Protein, UAD Negative (Negative); Urine Specific Gravity 1.029 (1.001-1.035); Urine Squamous Epithelial Cell None Seen /hpf (<5); Urine Urobilinogen Normal (Negative); Urine WBC 1 /HPF (0-3); Urine pH 5.5 (5.0-9.0)
[2024-08-29 19:30] LABS: Basophils # (auto) 0 10 ^3/uL (0-0.2); Basophils % (auto) 0.3 % (0.0-2.0); Eosinophils # (auto) 0 10 ^3/uL (0-0.8); Eosinophils % (auto) 0.1 % (0.0-7.0); Hematocrit 46.1 % (41.0-53.0); Hemoglobin 15.8 g/dL (13.5-17.5); Lymphocytes % (auto) 16.6 % (10.0-50.0); Mean Corpuscular Hemoglobin 30.9 pg (28.0-32.0); Mean Corpuscular Hgb Conc. 34.3 g/dL (32.0-36.0); Monocytes # (auto) 0.8 10 ^3/uL (0-1.3); Monocytes % (auto) 12.7 % (0.0-12.0); Neutrophils # (auto) 4.3 10 ^3/uL (1.6-8.6); Neutrophils % (auto) 70.3 % (37.0-80.0); Nucleated Red Blood Cells % 0.1 %; Platelet Count (auto) 225 10^3/uL (140-450); Red Blood Cells 5.11 10^6/uL (4.5-5.90); Red Cell Distribution Width 14.2 % (11.8-14.3); White Blood Cell 6.2 10^3/uL (4.4-10.8)
[2024-08-29 19:51] LABS: Albumin 4.6 g/dL (3.2-4.8); Alkaline Phosphatase 98 U/L (46-116); Anion Gap 11 (5-15); Aspartate Aminotransferase 25 U/L (<34); BUN/Creatinine Ratio 14.1 (10.0-20.0); Bilirubin, Total 0.5 mg/dL (0.2-1.0); Calcium 9.4 mg/dL (8.7-10.4); Carbon Dioxide 24 mmol/L (20-31); Chloride 100 mmol/L (98-107); Potassium 4.7 mmol/L (3.5-5.1); Total Protein 7.7 g/dL (5.7-8.2)
[2024-08-29 19:53] LABS: Alanine Aminotransferase 41 U/L (7-40); Blood Urea Nitrogen 27 mg/dL (9-23); Glucose 162 mg/dL (74-106); Sodium 135 mmol/L (136-145)
[2024-08-29] MEDS ORDERED: SODIUM CHLORIDE 0.9% 1,800 ML IV ONE (21:15)
--- NOTE | 2024-08-29 21:19 | DVHHPRES ---
History of Present Illness Resident Creating Document: KIMBERLY MCINTOSH RESIDENT History of Present Illness 58-year-old male past medical history of rheumatoid arthritis, diabetes mellitus, hypertension presented with complaints of fever for last two weeks associated with chills, headache, neck pain, sweats, loss of appetite, fatigue. Patient mentioned that he was recently in the ED where he was discharged with antibiotics mentioned mentioned no improvement. Patient mentioned he started having cough for last four days which is dry, denied any shortness of breath. Mentioned associated loss of appetite and 6 lb weight loss in last two weeks Mentioned that coworkers had similar illness but none of them was hospitalized. Patient is denying any chest pain, palpitations, orthopnea, pedal edema. He was born in [place] and moved [place] the [place] 40 years ago. 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 Review of Systems Review of Systems As described in the HPI Allergies: Coded Allergies: NO KNOWN ALLERGIES (Unverified , 04/11/14) Exam Vital Signs Vital Signs Date Time Temp Pulse Resp B/P (MAP) Pulse Ox O2 Delivery O2 Flow Rate FiO2 08/29/24 18:20 99.6 102 18 114/71 (85) 95 99.6 Labs/Xrays Labs Test 08/29/24 20:43 08/29/24 19:04 08/29/24 18:25 Range/Units White Blood Count 6.2 4.4-10.8 10^3/uL Red Blood Count 5.11 4.5-5.90 10^6/uL Hemoglobin 15.8 13.5-17.5 g/dL Hematocrit 46.1 41.0-53.0 % Mean Corpuscular Volume 90.0 80.0-100.0 fL Mean Corpuscular Hemoglobin 30.9 28.0-32.0 pg Mean Corpuscular Hemoglobin Concent 34.3 32.0-36.0 g/dL Red Cell Distribution Width 14.2 11.8-14.3 % Platelet Count 225 140-450 10^3/uL Mean Platelet Volume 8.1 6.9-10.8 fL Neutrophils (%) (Auto) 70.3 37.0-80.0 % Lymphocytes (%) (Auto) 16.6 10.0-50.0 % Monocytes (%) (Auto) 12.7 H 0.0-12.0 % Eosinophils (%) (Auto) 0.1 0.0-7.0 % Basophils (%) (Auto) 0.3 0.0-2.0 % Neutrophils # (Auto) 4.3 1.6-8.6 10 ^3/uL Lymphocytes # (Auto) 1.0 0.4-5.4 10 ^3/uL Monocytes # (Auto) 0.8 0-1.3 10 ^3/uL Eosinophils # (Auto) 0 0-0.8 10 ^3/uL Basophils # (Auto) 0 0-0.2 10 ^3/uL Nucleated Red Blood Cells 0.1 % Sodium Level 135 L 136-145 mmol/L Potassium Level 4.7 3.5-5.1 mmol/L Chloride Level 100 98-107 mmol/L Carbon Dioxide Level 24 20-31 mmol/L Anion Gap 11 5-15 Blood Urea Nitrogen 27 H 9-23 mg/dL Creatinine 1.91 H 0.700-1.30 mg/dL Glomerular Filtration Rate Calc 40 >90 mL/min BUN/Creatinine Ratio 14.1 10.0-20.0 Serum Glucose 162 H 74-106 mg/dL Lactic Acid Level 1.4 0.4-2.0 mmol/L Calcium Level 9.4 8.7-10.4 mg/dL Total Bilirubin 0.5 0.2-1.0 mg/dL Aspartate Amino Transferase (AST) 25 <34 U/L Alanine Aminotransferase (ALT) 41 H 7-40 U/L Alkaline Phosphatase 98 46-116 U/L Total Protein 7.7 5.7-8.2 g/dL Albumin 4.6 3.2-4.8 g/dL Urine Color Light-yellow Yellow Urine Clarity Clear Clear Urine pH 5.5 5.0-9.0 Urine Specific [place] 1.029 1.001-1.035 Urine Protein Negative Negative Urine Ketones Negative Negative Urine Blood Negative Negative /uL Urine Nitrite Negative Negative Urine Bilirubin Negative Negative Urine Urobilinogen Normal Negative mg/dL Urine Leukocyte Esterase Negative Negative /uL Urine RBC 1 0 - 3 /hpf Urine Microscopic WBC 1 0-3 /HPF Urine Squamous Epithelial Cells None seen <5 /hpf Urine Bacteria None seen None Seen /hpf Urine Glucose 4+ H Normal mg/dL Assessment/Plan Assessment/Plan A and P #Sepsis likely due to pneumonia -IV fluids 30cc/kg -sputum, blood culture -CT chest -MRSA, Flu, Covid -Vanc plus Zosyn #Community acquired Pneumonia Gram +/- ?Rule out Neoplasm -CT chest shows 1. 22 x 17 mm round pleural-based consolidation mid right lung field. Findings may represent neoplasm or infection. Recommend follow-up after appropriate clinical therapy. --sputum, blood culture -CT chest -MRSA, Flu, Covid -Vanc plus Zosyn, de-escalate tomorrow based on clinical improvement. -ORDERED TB GOLD QUANTIFERON, BASED ON PATIENT MOVING FROM [place] 40 yrs ago , is currently on ADALIMUMAB, and subpleural location of the consolidation concerning for primary TB #TERE on CKD due to VMN due to sepsis -monitor BMP -IV fluids #RA -will resume prednisone #HTN -currently normotensive #DM2 -sliding scale insulin -Hemoglobin A1C DVT prophylaxis Lovenox Case discussion with Dr Mccarthy Plan discussed with: Patient, Other Date of Service: Aug 29, 2024 Billing Provider: DARIN MCCARTHY MD Common Visit Codes: [id number] INP/OBS CARE (HIGH) KIMBERLY MCINTOSH RESIDENT Aug 29, 2024 21:19 DARIN MCCARTHY MD Aug 30, 2024 18:20
[2024-08-29] MEDS: SODIUM CHLORIDE 0.9% 1,000 ML IV ONE (21:30)
[2024-08-29 21:51] LABS: COVID19 ANTIGEN SOFIA FIA NEGATIVE (NEGATIVE); Rapid Influenza A Negative (Negative); Rapid Influenza B Negative (Negative)
--- NOTE | 2024-08-29 21:53 | DVH ---
Procedure: CT CHEST WITHOUT CONTRAST Reason for study/Clinical History: cough, Sepsis Comparison Study: None Exam Date: 08/29/2024 09:21 PM TECHNIQUE: Multidetector CT of the chest was performed from the lung apices to the upper abdomen with out the use of intravenous contract. Axial, coronal and sagittal multiplanar reformats were performed . Radiation Dose Information: CT Dose: CTDI volume is 16.53 mGy. Dose-length product is 653.9 mGy*cm The dose indicators for CT are the volume Computed Tomography (CT) Dose Index (CTDIvol) and the Dose Length Product (DLP), and are measured in units of mGy and mGy-cm, respectively. These indicators are not patient dose, but values generated from the CT scanner acquisition factors. The report includes radiation exposure data for exposures received during this examination. FINDINGS: Lower neck: Normal thyroid. Lungs: 22 x 17 mm round consolidation right lung base posteriorly represent infection or neoplasm. Heart/Vascular Structures: Normal heart size. No pericardial effusion. Lymph Nodes: No adenopathy Pleura: No pleural effusion or significant pneumothorax. Musculoskeletal: No acute osseous abnormality. Soft tissues: Normal. Upper abdomen: Limited portions of the upper abdomen are unremarkable. IMPRESSION: 1. 22 x 17 mm round pleural-based consolidation mid right lung field. Findings may represent neoplas m or infection. Recommend follow-up after appropriate clinical therapy. Radiation optimization: All CT scans at this facility use at least one of these dose optimization simi hniques: automated exposure control mA and/or kV adjustment per patient size (includes targeted exam s where dose is matched to clinical indication) or iterative reconstruction. HS:Y
[2024-08-29] MEDS ORDERED: VANCOMYCIN PER PHARMACY 0 MG IV SCH (22:15)
[2024-08-29 22:31] LABS: Erythrocyte Sedimentation Rate 18 mm/hr (0-20)
[2024-08-29] MEDS: SODIUM CHLORIDE 0.9% 1,000 ML IVB ONE (23:13)
[2024-08-29] MEDS: PIPERACILLIN-TAZO 4.5GM 100 ML IV ONE (23:15)
[2024-08-30] VITALS (7 sets, daily range): BP systolic 112–132; BP diastolic 68–75; PULSE 76–90; RESP 18–21; TEMP 98.2–100; O2SAT 93–98
[2024-08-30] MEDS: VANCOMYCIN 1GM/200ML PM 200 ML IV SCH (02:25)
[2024-08-30 04:00] LABS: Anion Gap 10 (5-15); Carbon Dioxide 22 mmol/L (20-31); Chloride 105 mmol/L (98-107); Potassium 4.2 mmol/L (3.5-5.1); Sodium 137 mmol/L (136-145)
[2024-08-30 04:06] LABS: BUN/Creatinine Ratio 15.1 (10.0-20.0); Blood Urea Nitrogen 23 mg/dL (9-23); Calcium 8.2 mg/dL (8.7-10.4); Glucose 117 mg/dL (74-106); Magnesium 2.2 mg/dL (1.6-2.6)
[2024-08-30 04:08] LABS: Basophils # (auto) 0 10 ^3/uL (0-0.2); Basophils % (auto) 0.2 % (0.0-2.0); Eosinophils # (auto) 0 10 ^3/uL (0-0.8); Eosinophils % (auto) 0.1 % (0.0-7.0); Hematocrit 42.1 % (41.0-53.0); Hemoglobin 14.1 g/dL (13.5-17.5); Lymphocytes % (auto) 16.1 % (10.0-50.0); Mean Corpuscular Hemoglobin 30.4 pg (28.0-32.0); Mean Corpuscular Hgb Conc. 33.5 g/dL (32.0-36.0); Mean Corpuscular Volume 90.7 fL (80.0-100.0); Monocytes # (auto) 0.9 10 ^3/uL (0-1.3); Monocytes % (auto) 14.2 % (0.0-12.0); Neutrophils # (auto) 4.4 10 ^3/uL (1.6-8.6); Neutrophils % (auto) 69.4 % (37.0-80.0); Nucleated Red Blood Cells % 0.1 %; Platelet Count (auto) 205 10^3/uL (140-450); Red Blood Cells 4.64 10^6/uL (4.5-5.90); Red Cell Distribution Width 14.8 % (11.8-14.3); White Blood Cell 6.4 10^3/uL (4.4-10.8)
[2024-08-30] MEDS ORDERED: DEXTROSE (50%) 50ML SYRG IV PRN (05:45)
[2024-08-30] MEDS ORDERED: PIPERACILLIN-TAZOB 3.375GM 100 ML IV SCH (06:00)
[2024-08-30] MEDS: InsuLIN REG 1unit/0.01ml Soln (100units/ml) SC SCH (06:06)
[2024-08-30] MEDS: ACCU-CHEK COMFORT CURVE STRIP VI SCH (06:06)
[2024-08-30] MEDS: VANCOMYCIN 1GM/200ML PM 200 ML IV ONE (07:43)
[2024-08-30] MEDS: PIPERACILLIN-TAZOB 3.375GM 100 ML IV SCH (07:50)
[2024-08-30 08:17] LABS: Protein, Urine 23.8 mg/dL (1-14)
[2024-08-30 08:20] LABS: Creatinine, Urine 90.53 mg/dL (30.0-125.0); Urine Protein/Creatinine Ratio 0.26
[2024-08-30 11:03] LABS: INR 1.14 (0.9-1.15); Partial Thromboplastin Time 30.7 SEC (24.5-34.5); Prothrombin Time 11.9 sec (9.3-11.8)
[2024-08-30] MEDS: ENOXAPARIN SOD 40 MG/0.4 ML SYRINGE SC SCH (11:19)
[2024-08-30] MEDS: predniSONE 1 MG TAB PO SCH (11:19)
[2024-08-30] MEDS: SODIUM CHLORIDE 0.9% 1,000 ML IV ONE (13:26)
[2024-08-30] MEDS: levoFLOXacin 500MG 100 ML IV ONE (13:27)
--- NOTE | 2024-08-30 13:44 | DVHINCON2 ---
Date of service: Aug 30, [address] Zheng Reason for Consultation Pneumonia History of Present Illness History Source: Patient Exam Limitations: No limitations HPI Patient is a 58-year old gentleman with a history of rheumatoid disease and hypertension who presented with fever associated with chills, neck pain, sweats, fatigue and cough x 1 week. Was seen in the emergency room where chest x0ray was unremarkable however CT demonstrated pleural based consolidation. Patient was a dmitted for further workup and pulmonology was consulted to assist in management. Home Meds Active Scripts Amoxicillin & Pot Clavulanate (AUGMENTIN TABLET) 875 Mg Tb, 875 MG PO BID for 7 Days, #14 TAB 0 Refills Prov:ANCELMO HOPKINS [employer]ARY TE[employer]ER 08/23/24 Reported Medications Enalapril Maleate (Enalapril Maleate) 5 Mg Tab, 5 MG PO DAILY, TAB 08/21/22 Prednisone (PREDNISONE) 1 Mg Tb, 8 TAB PO DAILY, #120 TAB 3 Refills 08/21/22 Methotrexate (Methotrexate) 2.5 Mg Tab, 2.5 MG PO QWEEKLY, #7 TAB 08/21/22 Metformin Hydrochloride (METFORMIN HCL ER) 1,000 Mg Tab, 1000 MG PO BIDBRS, TAB 08/21/22 Insulin Glargine (Lantus Solostar) 100 Unit/Ml Inj, 20 UNIT SC BID, INJ 08/21/22 Insulin Isophane & Reg (Human) (Humulin 70/30 (70-30) 100 Unit/ml) 1 Units/0.01 Ml Inj, 5 UNITS SC QAM, INJ 08/21/22 Adalimumab (Humira Pen) 40 Mg/0.4 Ml Inj, 40 MG SC, INJ 08/21/22 Gabapentin (Gabapentin) 100 Mg Cap, 100 MG PO TID, CAP 08/21/22 Folic Acid (Folic Acid) 1 Mg Tab, 1 MG PO DAILY, TAB 08/21/22 Atorvastatin Calcium (ATORVASTATIN CALCIUM) 20 Mg Tab, 20 MG PO DAILY, TAB 08/21/22 Amlodipine Besylate (NORVASC TABLET) 5 Mg Tb, 5 MG PO DAILY, TAB 08/21/22 Past Medical History Cardiac: HTN Pulmonary: No pertinent Hx Central Nervous System: No pertinent Hx GI: No pertinent Hx Hemotology/Oncology: No pertinent Hx Hepatobiliary: No pertinent Hx Psychiatric: No pertinent Hx Musculoskeletal: No pertinent Hx Rheumotologic: Rheumatoid arthritis Infectious Disease: No peritnent Hx ENT: No pertinent Hx Renal/: No pertinent Hx Endocrine: No pertinent Hx Dermatology: No pertinent Hx Past Surgical History: No pertinent Hx Family History: No pertinent Hx Smoker: No Hx (Negative) Alocohol: None Drugs: None Lives with: With family Domestic Violence: Neg Review of Systems Constitutional: Chills, Fever, Sweats Ears, Nose, & Throat: No symptom reported Eyes: No symptom reported Pulmonary/Respiratory: No symptom reported Cardiovascular: No symptom reported Gastrointestinal: No symptom reported Genitourinary: No symptom reported Musculoskeletal: Neck pain Skin: No symptom reported Psychiatric: No symptom reported Endocrine: No symptom reported Hemotologic/Lymphatic: No symptom reported H&P Exam Vital Signs Vital Signs Date Time Temp Pulse Resp B/P (MAP) Pulse Ox O2 Delivery O2 Flow Rate FiO2 08/30/24 11:30 89 25 130/79 (96) 97 08/30/24 09:06 Room Air* 0 21 08/30/24 07:30 99.6 99.6 General Appeara: Well developed, Well nourished, Normal Appearance Head Exam: Normal inspection Neck Exam: Normal inspection, Non-tender, Normal alignment Eye Exam: bilateral eye Normal inspection, bilateral eye PERRL, bilateral eye EOMI Ear Exam: bilateral ear Auricle normal, bilateral ear Canal normal, bilateral ear TM normal Nasal Exam: Normal inspection Mouth: Normal Inspection Pulmonary/Respiratory: Decreased breath sounds Peripheral Pulses: 4+ Radial (R), 4+ Radial (L), 4+ Brachial (R), 4+ Brachial (L) Abdominal Exam: Normal bowel sounds Labs/Xrays Labs Test 08/30/24 10:29 08/30/24 06:53 08/30/24 06:03 08/30/24 03:12 Range/Units Prothrombin Time 11.9 H 9.3-11.8 sec Prothrombin Time INR 1.14 0.9-1.15 Activated Partial Thromboplast Time 30.7 24.5-34.5 SEC C-Reactive Protein High Sensitivity 6.74 H <1.0 mg/dL Thyroid Stimulating Hormone (TSH) 1.41 0.55-4.78 uIU/mL POC Glucose 118 H 70-106 mg/dl White Blood Count 6.4 4.4-10.8 10^3/uL Red Blood Count 4.64 4.5-5.90 10^6/uL Hemoglobin 14.1 13.5-17.5 g/dL Hematocrit 42.1 41.0-53.0 % Mean Corpuscular Volume 90.7 80.0-100.0 fL Mean Corpuscular Hemoglobin 30.4 28.0-32.0 pg Mean Corpuscular Hemoglobin Concent 33.5 32.0-36.0 g/dL Red Cell Distribution Width 14.8 H 11.8-14.3 % Platelet Count 205 140-450 10^3/uL Mean Platelet Volume 8.3 6.9-10.8 fL Neutrophils (%) (Auto) 69.4 37.0-80.0 % Lymphocytes (%) (Auto) 16.1 10.0-50.0 % Monocytes (%) (Auto) 14.2 H 0.0-12.0 % Eosinophils (%) (Auto) 0.1 0.0-7.0 % Basophils (%) (Auto) 0.2 0.0-2.0 % Neutrophils # (Auto) 4.4 1.6-8.6 10 ^3/uL Lymphocytes # (Auto) 1.0 0.4-5.4 10 ^3/uL Monocytes # (Auto) 0.9 0-1.3 10 ^3/uL Eosinophils # (Auto) 0 0-0.8 10 ^3/uL Basophils # (Auto) 0 0-0.2 10 ^3/uL Nucleated Red Blood Cells 0.1 % Sodium Level 137 136-145 mmol/L Potassium Level 4.2 3.5-5.1 mmol/L Chloride Level 105 98-107 mmol/L Carbon Dioxide Level 22 20-31 mmol/L Anion Gap 10 5-15 Blood Urea Nitrogen 23 9-23 mg/dL Creatinine 1.52 H 0.700-1.30 mg/dL Glomerular Filtration Rate Calc 52 >90 mL/min BUN/Creatinine Ratio 15.1 10.0-20.0 Serum Glucose 117 H 74-106 mg/dL Calcium Level 8.2 L 8.7-10.4 mg/dL Magnesium Level 2.2 1.6-2.6 mg/dL Test 08/29/24 22:14 08/29/24 20:43 08/29/24 19:04 08/29/24 18:25 Range/Units Lactic Acid Level 1.0 0.4-2.0 mmol/L Influenza Type A Antigen Negative Negative Influenza Type B Antigen Negative Negative SARS-CoV-2 Antigen (Rapid) Negative NEGATIVE Erythrocyte Sedimentation Rate 18 0-20 mm/hr Hemoglobin A1c 8.0 H <5.7 % A1C Total Bilirubin 0.5 0.2-1.0 mg/dL Aspartate Amino Transferase (AST) 25 <34 U/L Alanine Aminotransferase (ALT) 41 H 7-40 U/L Alkaline Phosphatase 98 46-116 U/L Total Protein 7.7 5.7-8.2 g/dL Albumin 4.6 3.2-4.8 g/dL Urine Color Light-yellow Yellow Urine Clarity Clear Clear Urine pH 5.5 5.0-9.0 Urine Specific [place] 1.029 1.001-1.035 Urine Protein Negative Negative Urine Ketones Negative Negative Urine Blood Negative Negative /uL Urine Nitrite Negative Negative Urine Bilirubin Negative Negative Urine Urobilinogen Normal Negative mg/dL Urine Leukocyte Esterase Negative Negative /uL Urine RBC 1 0 - 3 /hpf Urine Microscopic WBC 1 0-3 /HPF Urine Squamous Epithelial Cells None seen <5 /hpf Urine Bacteria None seen None Seen /hpf Urine Creatinine 90.53 30.0-125.0 mg/dL Urine Protein/Creatinine Ratio 0.26 Urine Sodium 18 L 40-220 mmol/L Urine Glucose 4+ H Normal mg/dL Urine Total Protein 23.8 H 1-14 mg/dL Assessment/Plan Plan Impression Rheumatoid disease Atelectasis Pneumonia Fever Patient seen and examined Events Low oxygen requirements On room air Isolated inappropriately Vital signs stable Labs and imaging reviewed Chest x-ray unremarkable CT demonstrates pleural based consolidation in the right lower lobe, most likely rounded atelectasis Management Supplemental oxygen as needed Titrate to maintain sats 90% or above Incentive spirometry Antibiotics Obtain cultures Bronchodilators Monitor renal function Monitor electrolytes Supplement as needed Antitussives as needed Recommend pulmonary follow up as outpatient with repeat CT of the chest DVT prophylaxis Plan discussed with: Patient MONROE HOLLAND MD Aug 30, 2024 13:43
--- NOTE | 2024-08-30 17:01 | DVHPNRES ---
Progress Note Date Seen: Aug 30, 2024 Resident Creating Document: SUKI LIU RESIDENT Medical Necessity Reason Pt with a Central, PICC or Fol: No Subjective Review of Systems Mr. Canales is a 58-year-old with rheumatoid arthritis on adalimumab for the past 12 years, diabetes mellitus type 2 for the past 18 years, hypertension who presented to the ER with the chief complaint of shortness of breaths for the past 2 weeks, generalized weakness and chills for the past 4 weeks. 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 He started to get short of breath on exertion for the past 2 weeks. Patient reports that he underwent TB testing before he was prescribed adalimumab and it was negative. Associated symptoms include dry cough for the past week. Past medical history: rheumatoid arthritis on adalimumab for the past 12 years, diabetes mellitus type 2 for the past 18 years, hypertension Past surgical history: None Medication history: Adalimumab, amlodipine, insulin, Jardiance, fenofibrate, folic acid Social history: Born in [place], moved to .. 40 year,, denies lifetime smoking history, alcohol history, drug use. Lives with son and Patient seen and examined at the bedside. Decreased bilateral air entry, mild crackles heard on auscultation. Objective vital signs Vital Sign Date Time Temp Pulse Resp B/P (MAP) Pulse Ox O2 Delivery O2 Flow Rate FiO2 08/30/24 12:54 100.0 88 18 132/75 (94) 93 100.0 08/30/24 12:54 Room Air* 0 21 Total Intake and Output 08/29/24 08/29/24 08/30/24 15:00 23:00 07:00 Intake Total 1100 ml Balance 1100 ml medications Current Medications Medications Dose Ordered Sig/Kalin Route Start Time Stop Time Status Last Admin Dose Admin Vancomycin HCl 0 ml @ 0 mls/hr UD IV 08/29/24 22:15 Enoxaparin Sodium 40 mg DAILY SC 08/30/24 10:00 08/30/24 11:19 40 MG Diagnostic Test (Pha) 1 strip IQ4HR 08/30/24 08:00 08/30/24 15:48 1 STRIP Insulin Human Regular IQ4HR SC 08/30/24 08:00 08/30/24 15:50 3 UNITS Dextrose 50 ml UD PRN IV 08/30/24 05:45 Prednisone 8 mg DAILY PO 08/30/24 10:00 08/30/24 11:19 8 MG Levofloxacin/ Dextrose 100 ml @ 100 mls/hr DAILY IV 08/31/24 10:00 Examination Obese male patient, lying in the bed, no acute distress General: Obese, afebrile, palor, mucosae are moist Cardiovascular: Regular S1 and S2. No murmurs, gallops or rubs. No JVD elevation. No pedal edema Respiratory: Decreased bilateral air entry, mild crackles heard on auscultation. Abdomen: Soft, nontender, nondistended, normoactive bowel sounds, no rebound tenderness, no organomegaly, no masses Genitourinary: Deferred MSK/skin: Mobilizes 4 limbs. Skin is dry and warm Neurological: No motor, no sensitive deficits, normal speech. Pupils are isocoric and reactive. Psych/Mental Status: A/Ox3 laboratory and microbiology Laboratory Tests 08/30/24 03:12 Test 08/30/24 03:12 Range/Units Serum Glucose 117 H 74-106 mg/dL Microbiology Date/Time Source Procedure Growth Status 08/30/24 07:54 Nose MRSA Screen - Final Complete Labs and/or images reviewed: Labs reviewed by me, Image(s) reviewed by me Problem List/Assessment/Plan Problem List/Assessment/Plan Sepsis likely due to pneumonia Gram +/- pneumonia Rule out Neoplasm IV fluids 30cc/kg bolus given NS 100 cc/hour maintenance fluid MRSA screen negative, sputum and blood culture pending CT chest shows 22 x 17 mm round pleural-based consolidation mid right lung field. Findings may represent neoplasm or infection. Recommend follow-up after appropriate clinical therapy. Flu, COVID negative IV vancomycin and IV Levaquin starting 08/30 Clip Baker consulted - Recommend pulmonary follow up as outpatient with repeat CT of the chest CRP elevated at 6.7 Rule out tuberculosis ORDERED TB GOLD QUANTIFERON, BASED ON PATIENT MOVING FROM [place] 40 yrs ago , is currently on ADALIMUMAB, and subpleural location of the consolidation concerning for primary TB Airborne precautions TERE on CKD due to VMN due to sepsis NS 100 cc/hour FENA 0.3%, prerenal RA Home medication prednisolone 8 mg daily HTN Resume home medication if hypotensive Diabetes mellitus type 2-hemoglobin A1c 8 Mild sliding scale DVT prophylaxis Lovenox Diabetic diet Plan discussed with patient, mother at bedside, son over the phone in which all questions have been answered Goals of care discussed for more than 20 minutes, full code status Case discussed with Dr. Arevalo Plan discussed with: Patient My Orders My Orders Orders - SUKI LIU Procedure Category Date Status Time Isolation Order ORDERS 08/30/24 Transmitted 07:37 Vitamin B12 LAB 08/30/24 In Process 08:37 Vitamin D, 25-Hydroxy LAB 08/30/24 In Process 08:37 Levofloxacin 500mg PHA 08/31/24 In Process (Levaquin 500mg/ 100m 10:00 *Consult CONS 08/30/24 Transmitted / 11:30 Sodium Chloride 0.9% PHA 08/30/24 In Process 11:45 Date of Service: Aug 30, 2024 Billing Provider: GORDON ZAVALA MD Common Visit Codes: [id number] INP/OBS CARE(HIGH) SUKI LIU Aug 30, 2024 17:01 GORDON ZAVALA MD Sep 05, 2024 10:20
[2024-08-30] MEDS: VANCOMYCIN 750mg/150ml 150 ML IV SCH (20:10)
[2024-08-31] VITALS (8 sets, daily range): BP systolic 103–121; BP diastolic 61–79; PULSE 68–77; RESP 17–20; TEMP 98.2–98.6; O2SAT 95–98
[2024-08-31 06:43] LABS: Hematocrit 43.7 % (41.0-53.0); Hemoglobin 14.8 g/dL (13.5-17.5); Mean Corpuscular Hemoglobin 30.8 pg (28.0-32.0); Mean Corpuscular Hgb Conc. 33.9 g/dL (32.0-36.0); Platelet Count (auto) 207 10^3/uL (140-450); Red Blood Cells 4.81 10^6/uL (4.5-5.90); Red Cell Distribution Width 14.2 % (11.8-14.3); White Blood Cell 5.9 10^3/uL (4.4-10.8)
[2024-08-31 06:57] LABS: Anion Gap 11 (5-15); Carbon Dioxide 21 mmol/L (20-31); Chloride 103 mmol/L (98-107); Potassium 4.2 mmol/L (3.5-5.1)
[2024-08-31 07:01] LABS: Basophils % (manual) 0 (0.0-2.0); Blast Cells 0; Eosinophils % (manual) 0 (0-7); Metamyelocytes % 0; Myelocytes % 0; Promyelocytes % 0
[2024-08-31 07:03] LABS: BUN/Creatinine Ratio 14.2 (10.0-20.0); Blood Urea Nitrogen 17 mg/dL (9-23); Glucose 86 mg/dL (74-106)
[2024-08-31 07:09] LABS: Calcium 8.4 mg/dL (8.7-10.4); Sodium 135 mmol/L (136-145)
[2024-08-31 08:05] LABS: Band Neutrophils % (manual) 4; Lymphocytes % (manual) 31 (10.0-50.0); Monocytes % (manual) 8 (0-12); Platelet Estimate Adequate; Reactive Lymphocytes 2
[2024-08-31] MEDS: levoFLOXacin 500MG 100 ML IV SCH (09:28)
--- NOTE | 2024-08-31 15:44 | DVHPNRES ---
Progress Note Date Seen: Aug 31, 2024 Resident Creating Document: SUKI LIU RESIDENT Medical Necessity Reason Pt with a Central, PICC or Fol: No Subjective Review of Systems Mr. Canales is a 58-year-old with rheumatoid arthritis on adalimumab for the past 12 years, diabetes mellitus type 2 for the past 18 years, hypertension who presented to the ER with the chief complaint of shortness of breaths for the past 2 weeks, generalized weakness and chills for the past 4 weeks. 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 He started to get short of breath on exertion for the past 2 weeks. Patient reports that he underwent TB testing before he was prescribed adalimumab and it was negative. Associated symptoms include dry cough for the past week. Past medical history: rheumatoid arthritis on adalimumab for the past 12 years, diabetes mellitus type 2 for the past 18 years, hypertension Past surgical history: None Medication history: Adalimumab, amlodipine, insulin, Jardiance, fenofibrate, folic acid Social history: Born in [place], [place],, denies lifetime smoking history, alcohol history, drug use. Lives with son and 08/30 - Patient seen and examined at the bedside. Decreased bilateral air entry, mild crackles heard on auscultation. 08/31 - patient seen and examined at the bedside. Reports feeling better, prelim culture shows Few Gram Positive Cocci in chains Objective vital signs Vital Sign Date Time Temp Pulse Resp B/P (MAP) Pulse Ox O2 Delivery O2 Flow Rate FiO2 08/31/24 12:26 98.4 71 18 106/66 (79) 97 98.4 08/31/24 08:00 Room Air* 0 21 Total Intake and Output 08/30/24 08/30/24 08/31/24 15:00 23:00 07:00 Intake Total 350 ml 600 ml Output Total 780 ml Balance 350 ml -180 ml medications Current Medications Medications Dose Ordered Sig/Kalin Route Start Time Stop Time Status Last Admin Dose Admin Vancomycin HCl 0 ml @ 0 mls/hr UD IV 08/29/24 22:15 Enoxaparin Sodium 40 mg DAILY SC 08/30/24 10:00 08/31/24 09:28 40 MG Diagnostic Test (Pha) 1 strip IQ4HR 08/30/24 08:00 08/31/24 09:43 1 STRIP Insulin Human Regular IQ4HR SC 08/30/24 08:00 08/31/24 09:47 3 UNITS Dextrose 50 ml UD PRN IV 08/30/24 05:45 Prednisone 8 mg DAILY PO 08/30/24 10:00 08/31/24 09:47 8 MG Levofloxacin/ Dextrose 100 ml @ 100 mls/hr DAILY IV 08/31/24 10:00 08/31/24 09:28 100 MLS/HR Vancomycin HCl 150 ml @ 150 mls/hr Q12H IV 08/30/24 17:00 08/31/24 04:57 150 MLS/HR Examination Obese male patient, lying in the bed, no acute distress General: Obese, afebrile, palor, mucosae are moist Cardiovascular: Regular S1 and S2. No murmurs, gallops or rubs. No JVD elevation. No pedal edema Respiratory: Decreased bilateral air entry, mild crackles heard on auscultation. Abdomen: Soft, nontender, nondistended, normoactive bowel sounds, no rebound tenderness, no organomegaly, no masses Genitourinary: Deferred MSK/skin: Mobilizes 4 limbs. Skin is dry and warm Neurological: No motor, no sensitive deficits, normal speech. Pupils are isocoric and reactive. Psych/Mental Status: A/Ox3 laboratory and microbiology Laboratory Tests 08/31/24 04:49 Test 08/31/24 04:49 Range/Units Serum Glucose 86 74-106 mg/dL Microbiology Date/Time Source Procedure Growth Status 08/30/24 14:47 Sputum Gram Stain - Final Resulted 08/30/24 14:47 Sputum Respiratory Culture - Preliminary Resulted 08/30/24 07:54 Nose MRSA Screen - Final Complete 08/29/24 19:04 Blood Blood Culture - Preliminary NO GROWTH AFTER 24 HOURS OF INCUBATION. Resulted Labs and/or images reviewed: Labs reviewed by me, Image(s) reviewed by me Problem List/Assessment/Plan Problem List/Assessment/Plan Sepsis likely due to pneumonia Gram +/- pneumonia Rule out Neoplasm IV fluids 30cc/kg bolus given NS 100 cc/hour maintenance fluid MRSA screen negative, sputum and blood culture pending CT chest shows 22 x 17 mm round pleural-based consolidation mid right lung field. Findings may represent neoplasm or infection. Recommend follow-up after appropriate clinical therapy. Flu, COVID negative IV vancomycin and IV Levaquin starting 08/30 Catalyst Imp[employer]ator consulted - Recommend pulmonary follow up as outpatient with repeat CT of the chest CRP elevated at 6.7 DC isolation Respiratory Prelim culture shows Few Gram Positive Cocci in chains Rule out tuberculosis ORDERED TB GOLD QUANTIFERON, BASED ON PATIENT MOVING FROM [place] 40 yrs ago , is currently on ADALIMUMAB, and subpleural location of the consolidation concerning for primary TB Catalyst Impregnator-DC isolation TERE on CKD due to VMN due to sepsis-resolving Discontinued NS 100 cc/hour FENA 0.3%, prerenal RA Home medication prednisolone 8 mg daily HTN Resume home medication if hypotensive Diabetes mellitus type 2-hemoglobin A1c 8 Mild sliding scale DVT prophylaxis Lovenox Diabetic diet Plan discussed with patient, mother at bedside, son over the phone in which all questions have been answered Goals of care discussed for more than 20 minutes, full code status Case discussed with Dr. Arevalo Plan discussed with: Patient My Orders My Orders Orders - SUKI LIU Procedure Category Date Status Time D/C Isolation ORDERS 08/30/24 Transmitted 18:18 Dietary Evaluation Review Comments: 1) refer to CDe on DC 2) COntinue current pOC Expected Outcomes/Goals: To meet >75% estimated needs Fu 3-5 days Date of Service: Aug 31, 2024 Billing Provider: GORDON ZAVALA MD Common Visit Codes: [id number] INP/OBS CARE(HIGH) SUKI LIU Aug 31, 2024 15:44 GORDON ZAVALA MD Sep 05, 2024 10:23
--- NOTE | 2024-08-31 18:17 | DVHPN2 ---
Progress Note - Dictate Date Seen: Aug 31, 2024 Medical Necessity Reason Pt with a Central, PICC or Fol: No vital signs Vital Sign Date Time Temp Pulse Resp B/P (MAP) Pulse Ox O2 Delivery O2 Flow Rate FiO2 08/31/24 16:26 98.3 68 20 114/70 (85) 95 98.3 08/31/24 08:00 Room Air* 0 21 Total Intake and Output 08/30/24 08/30/24 08/31/24 15:00 23:00 07:00 Intake Total 350 ml 600 ml Output Total 780 ml Balance 350 ml -180 ml medications Current Medications Medications Dose Ordered Sig/Kalin Route Start Time Stop Time Status Last Admin Dose Admin Vancomycin HCl 0 ml @ 0 mls/hr UD IV 08/29/24 22:15 Enoxaparin Sodium 40 mg DAILY SC 08/30/24 10:00 08/31/24 09:28 40 MG Diagnostic Test (Pha) 1 strip IQ4HR 08/30/24 08:00 08/31/24 15:51 1 STRIP Insulin Human Regular IQ4HR SC 08/30/24 08:00 08/31/24 15:54 4 UNITS Dextrose 50 ml UD PRN IV 08/30/24 05:45 Prednisone 8 mg DAILY PO 08/30/24 10:00 08/31/24 09:47 8 MG Levofloxacin/ Dextrose 100 ml @ 100 mls/hr DAILY IV 08/31/24 10:00 08/31/24 09:28 100 MLS/HR Vancomycin HCl 150 ml @ 150 mls/hr Q12H IV 08/30/24 17:00 08/31/24 16:46 150 MLS/HR laboratory and microbiology Laboratory Tests 08/31/24 04:49 Test 08/31/24 04:49 Range/Units Serum Glucose 86 74-106 mg/dL Assessment/Plan continue levaquin vancomycin abx alb/atr await sputum cx Dietary Evaluation Review Comments: 1) refer to CDe on DC 2) COntinue current pOC Expected Outcomes/Goals: To meet >75% estimated needs Fu 3-5 days Plan discussed with: Patient Date of Service: Aug 31, 2024 Billing Provider: MONROE HOLLAND MD Common Visit Codes: NOT BILLABLE MONROE HOLLAND MD Aug 31, 2024 18:17
[2024-09-01] VITALS (8 sets, daily range): BP systolic 109–119; BP diastolic 72–76; PULSE 65–71; RESP 17–20; TEMP 98–98.6; O2SAT 96–100
[2024-09-01 06:42] LABS: Anion Gap 7 (5-15); Carbon Dioxide 26 mmol/L (20-31); Chloride 106 mmol/L (98-107); Potassium 4.9 mmol/L (3.5-5.1); Sodium 139 mmol/L (136-145)
[2024-09-01 06:43] LABS: Calcium 9.6 mg/dL (8.7-10.4)
[2024-09-01 06:48] LABS: BUN/Creatinine Ratio 16.8 (10.0-20.0); Blood Urea Nitrogen 23 mg/dL (9-23); Glucose 120 mg/dL (74-106)
[2024-09-01 06:57] LABS: Hematocrit 42.4 % (41.0-53.0); Hemoglobin 14.5 g/dL (13.5-17.5); Mean Corpuscular Hgb Conc. 34.3 g/dL (32.0-36.0); Mean Corpuscular Volume 90.2 fL (80.0-100.0); Platelet Count (auto) 247 10^3/uL (140-450); Red Cell Distribution Width 14.4 % (11.8-14.3); White Blood Cell 6.4 10^3/uL (4.4-10.8)
[2024-09-01 07:00] LABS: Basophils % (manual) 0 (0.0-2.0); Blast Cells 0; Metamyelocytes % 0; Myelocytes % 0; Promyelocytes % 0; Reactive Lymphocytes 0
[2024-09-01 07:57] LABS: Band Neutrophils % (manual) 2; Eosinophils % (manual) 1 (0-7); Lymphocytes % (manual) 29 (10.0-50.0); Monocytes % (manual) 12 (0-12); Platelet Estimate Adequate
--- NOTE | 2024-09-01 11:45 | DVHPNRES ---
Progress Note Date Seen: Sep 01, 2024 Resident Creating Document: SUKI LIU RESIDENT Medical Necessity Reason Pt with a Central, PICC or Fol: No Subjective Review of Systems Mr. Canales is a 58-year-old with rheumatoid arthritis on adalimumab for the past 12 years, diabetes mellitus type 2 for the past 18 years, hypertension who presented to the ER with the chief complaint of shortness of breaths for the past 2 weeks, generalized weakness and chills for the past 4 weeks. 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 He started to get short of breath on exertion for the past 2 weeks. Patient reports that he underwent TB testing before he was prescribed adalimumab and it was negative. Associated symptoms include dry cough for the past week. Past medical history: rheumatoid arthritis on adalimumab for the past 12 years, diabetes mellitus type 2 for the past 18 years, hypertension Past surgical history: None Medication history: Adalimumab, amlodipine, insulin, Jardiance, fenofibrate, folic acid Social history: Born in [place], [place],, denies lifetime smoking history, alcohol history, drug use. Lives with son and 08/30 - Patient seen and examined at the bedside. Decreased bilateral air entry, mild crackles heard on auscultation. 08/31 - patient seen and examined at the bedside. Reports feeling better, prelim culture shows Few Gram Positive Cocci in chains 09/01-patient seen and examined. Mild crackles on right lower base. Denies fever or chills. NS 100 cc/hour total of 500 cc Objective vital signs Vital Sign Date Time Temp Pulse Resp B/P (MAP) Pulse Ox O2 Delivery O2 Flow Rate FiO2 09/01/24 09:43 98.3 65 19 109/74 (86) 98 98.3 09/01/24 08:00 Room Air* 0 21 Total Intake and Output 08/31/24 08/31/24 09/01/24 15:00 23:00 07:00 Intake Total 104 ml 730 ml 400 ml Output Total 800 ml Balance 104 ml 730 ml -400 ml medications Current Medications Medications Dose Ordered Sig/Kalin Route Start Time Stop Time Status Last Admin Dose Admin Vancomycin HCl 0 ml @ 0 mls/hr UD IV 08/29/24 22:15 Enoxaparin Sodium 40 mg DAILY SC 08/30/24 10:00 09/01/24 08:44 40 MG Diagnostic Test (Pha) 1 strip IQ4HR 08/30/24 08:00 09/01/24 08:00 1 STRIP Insulin Human Regular IQ4HR SC 08/30/24 08:00 09/01/24 08:43 4 UNITS Dextrose 50 ml UD PRN IV 08/30/24 05:45 Prednisone 8 mg DAILY PO 08/30/24 10:00 08/31/24 09:47 8 MG Levofloxacin/ Dextrose 100 ml @ 100 mls/hr DAILY IV 08/31/24 10:00 09/01/24 08:44 100 MLS/HR Vancomycin HCl 200 ml @ 200 mls/hr Q12H IV 09/01/24 17:00 Examination Obese male patient, lying in the bed, no acute distress General: Obese, afebrile, palor, mucosae are moist Cardiovascular: Regular S1 and S2. No murmurs, gallops or rubs. No JVD elevation. No pedal edema Respiratory: Decreased bilateral air entry, mild crackles heard on auscultation. Abdomen: Soft, nontender, nondistended, normoactive bowel sounds, no rebound tenderness, no organomegaly, no masses Genitourinary: Deferred MSK/skin: Mobilizes 4 limbs. Skin is dry and warm Neurological: No motor, no sensitive deficits, normal speech. Pupils are isocoric and reactive. Psych/Mental Status: A/Ox3 laboratory and microbiology Laboratory Tests 09/01/24 05:23 Test 09/01/24 05:23 Range/Units Serum Glucose 120 H 74-106 mg/dL Microbiology Date/Time Source Procedure Growth Status 08/30/24 14:47 Sputum Gram Stain - Final Resulted 08/30/24 14:47 Sputum Respiratory Culture - Preliminary Resulted 08/30/24 07:54 Nose MRSA Screen - Final Complete 08/29/24 19:04 Blood Blood Culture - Preliminary NO GROWTH AFTER 48 HOURS OF INCUBATION. Resulted Labs and/or images reviewed: Labs reviewed by me, Image(s) reviewed by me Problem List/Assessment/Plan Problem List/Assessment/Plan Sepsis likely due to pneumonia Gram +/- pneumonia Rule out Neoplasm IV fluids 30cc/kg bolus given NS 100 cc/hour maintenance fluid MRSA screen negative, sputum and blood culture pending CT chest shows 22 x 17 mm round pleural-based consolidation mid right lung field. Findings may represent neoplasm or infection. Recommend follow-up after appropriate clinical therapy. Flu, COVID negative IV vancomycin and IV Levaquin starting 08/30 Transformer Assembler consulted - Recommend pulmonary follow up as outpatient with repeat CT of the chest CRP elevated at 6.7 DC isolation Respiratory Prelim culture shows Few Gram Positive Cocci in chains Rule out tuberculosis ORDERED TB GOLD QUANTIFERON, BASED ON PATIENT MOVING FROM [place] 40 yrs ago , is currently on ADALIMUMAB, and subpleural location of the consolidation concerning for primary TB Transformer Assembler-ordered AFB smear and culture TERE on CKD due to VMN due to sepsis-resolving Discontinued NS 100 cc/hour FENA 0.3%, prerenal RA Home medication prednisolone 8 mg daily HTN Resume home medication if hypotensive Diabetes mellitus type 2-hemoglobin A1c 8 Mild sliding scale DVT prophylaxis Lovenox Diabetic diet Plan discussed with patient, mother at bedside, son over the phone in which all questions have been answered Goals of care discussed for more than 20 minutes, full code status Case discussed with Dr. Arevalo Plan discussed with: Patient, Son (Son at bedside) Dietary Evaluation Review Comments: 1) refer to CDe on DC 2) COntinue current pOC Expected Outcomes/Goals: To meet >75% estimated needs Fu 3-5 days Date of Service: Sep 01, 2024 Billing Provider: GORDON ZAVALA MD Common Visit Codes: [id number] INP/OBS CARE(HIGH) SUKI LIU RESIDENT Sep 01, 2024 11:45 GORDON ZAVALA MD Sep 05, 2024 10:02
[2024-09-01] MEDS: SODIUM CHLORIDE 0.9% 500 ML IV ONE (11:53)
--- NOTE | 2024-09-01 15:11 | DVHPN2 ---
Progress Note - Dictate Date Seen: Sep 01, 2024 Medical Necessity Reason Pt with a Central, PICC or Fol: No vital signs Vital Sign Date Time Temp Pulse Resp B/P (MAP) Pulse Ox O2 Delivery O2 Flow Rate FiO2 09/01/24 13:23 98.0 65 17 114/76 (89) 98 98.0 09/01/24 08:00 Room Air* 0 21 Total Intake and Output 08/31/24 08/31/24 09/01/24 15:00 23:00 07:00 Intake Total 104 ml 730 ml 400 ml Output Total 800 ml Balance 104 ml 730 ml -400 ml medications Current Medications Medications Dose Ordered Sig/Kalin Route Start Time Stop Time Status Last Admin Dose Admin Vancomycin HCl 0 ml @ 0 mls/hr UD IV 08/29/24 22:15 Enoxaparin Sodium 40 mg DAILY SC 08/30/24 10:00 09/01/24 08:44 40 MG Diagnostic Test (Pha) 1 strip IQ4HR 08/30/24 08:00 09/01/24 12:15 1 STRIP Insulin Human Regular IQ4HR SC 08/30/24 08:00 09/01/24 12:15 2 UNITS Dextrose 50 ml UD PRN IV 08/30/24 05:45 Prednisone 8 mg DAILY PO 08/30/24 10:00 09/01/24 11:51 8 MG Levofloxacin/ Dextrose 100 ml @ 100 mls/hr DAILY IV 08/31/24 10:00 09/01/24 08:44 100 MLS/HR Vancomycin HCl 200 ml @ 200 mls/hr Q12H IV 09/01/24 17:00 laboratory and microbiology Laboratory Tests 09/01/24 05:23 Test 09/01/24 05:23 Range/Units Serum Glucose 120 H 74-106 mg/dL Assessment/Plan continue levaquin vancomycin abx alb/atr await sputum cx Dietary Evaluation Review Comments: 1) refer to CDe on DC 2) COntinue current pOC Expected Outcomes/Goals: To meet >75% estimated needs Fu 3-5 days Plan discussed with: Patient MONROE HOLLAND MD Sep 01, 2024 15:11
[2024-09-01] MEDS: VANCOMYCIN 1GM/200ML PM 200 ML IV SCH (16:30)
[2024-09-02 00:59] VITALS: BP 121/78; PULSE 70; RESP 18; TEMP 98.2; O2SAT 99
[2024-09-02 05:00] VITALS: BP 108/72; PULSE 80; RESP 18; TEMP 98.6; O2SAT 95
[2024-09-02 07:27] LABS: Chloride 106 mmol/L (98-107); Potassium 4.1 mmol/L (3.5-5.1); Sodium 139 mmol/L (136-145)
[2024-09-02 07:28] LABS: Anion Gap 10 (5-15); Carbon Dioxide 23 mmol/L (20-31)
[2024-09-02 07:34] LABS: BUN/Creatinine Ratio 19.2 (10.0-20.0); Blood Urea Nitrogen 23 mg/dL (9-23)
[2024-09-02 07:35] LABS: Glucose 111 mg/dL (74-106)
[2024-09-02 09:00] VITALS: BP 107/71; PULSE 70; RESP 19; TEMP 97.9; O2SAT 97
[2024-09-02] MEDS: DOXYCYCLINE 100MG/100ML 100 ML IV SCH (14:30)
--- NOTE | 2024-09-02 16:20 | DVHPNRES ---
Progress Note Date Seen: Sep 02, 2024 Resident Creating Document: SUKI LIU RESIDENT Medical Necessity Reason Pt with a Central, PICC or Fol: No Subjective Review of Systems Mr. Canales is a 58-year-old with rheumatoid arthritis on adalimumab for the past 12 years, diabetes mellitus type 2 for the past 18 years, hypertension who presented to the ER with the chief complaint of shortness of breaths for the past 2 weeks, generalized weakness and chills for the past 4 weeks. 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 He started to get short of breath on exertion for the past 2 weeks. Patient reports that he underwent TB testing before he was prescribed adalimumab and it was negative. Associated symptoms include dry cough for the past week. Past medical history: rheumatoid arthritis on adalimumab for the past 12 years, diabetes mellitus type 2 for the past 18 years, hypertension Past surgical history: None Medication history: Adalimumab, amlodipine, insulin, Jardiance, fenofibrate, folic acid Social history: Born in [place], moved to .. 40 year,, denies lifetime smoking history, alcohol history, drug use. Lives with son and 08/30 - Patient seen and examined at the bedside. Decreased bilateral air entry, mild crackles heard on auscultation. 08/31 - patient seen and examined at the bedside. Reports feeling better, prelim culture shows Few Gram Positive Cocci in chains 09/01-patient seen and examined. Mild crackles on right lower base. Denies fever or chills. NS 100 cc/hour total of 500 cc 09/02-patient seen and examined. Reports feeling better, AFB smear 1 set negative. Pending repeat AFB smear and QuantiFERON gold. Creatinine downtrending to 1.2. IV vanco switched to IV doxy Objective vital signs Vital Sign Date Time Temp Pulse Resp B/P (MAP) Pulse Ox O2 Delivery O2 Flow Rate FiO2 09/02/24 09:00 97.9 70 19 107/71 (83) 97 97.9 09/02/24 08:05 Room Air* 0 21 Total Intake and Output 09/01/24 09/01/24 09/02/24 15:00 23:00 07:00 Intake Total 100 ml 1400 ml 1000 ml Balance 100 ml 1400 ml 1000 ml medications Current Medications Medications Dose Ordered Sig/Kalin Route Start Time Stop Time Status Last Admin Dose Admin Enoxaparin Sodium 40 mg DAILY SC 08/30/24 10:00 09/02/24 09:28 40 MG Diagnostic Test (Pha) 1 strip IQ4HR 08/30/24 08:00 09/02/24 12:09 1 STRIP Insulin Human Regular IQ4HR SC 08/30/24 08:00 09/02/24 12:00 3 UNITS Dextrose 50 ml UD PRN IV 08/30/24 05:45 Prednisone 8 mg DAILY PO 08/30/24 10:00 09/02/24 09:28 8 MG Levofloxacin/ Dextrose 100 ml @ 100 mls/hr DAILY IV 08/31/24 10:00 09/02/24 09:27 100 MLS/HR Doxycycline Hyclate 100 ml @ 50 mls/hr Q12H IV 09/02/24 14:30 Examination Obese male patient, lying in the bed, no acute distress General: Obese, afebrile, palor, mucosae are moist Cardiovascular: Regular S1 and S2. No murmurs, gallops or rubs. No JVD elevation. No pedal edema Respiratory: Decreased bilateral air entry, mild crackles heard on auscultation. Abdomen: Soft, nontender, nondistended, normoactive bowel sounds, no rebound tenderness, no organomegaly, no masses Genitourinary: Deferred MSK/skin: Mobilizes 4 limbs. Skin is dry and warm Neurological: No motor, no sensitive deficits, normal speech. Pupils are isocoric and reactive. Psych/Mental Status: A/Ox3 laboratory and microbiology Laboratory Tests 09/02/24 06:18 09/01/24 05:23 Test 09/02/24 06:18 Range/Units Serum Glucose 111 H 74-106 mg/dL Microbiology Date/Time Source Procedure Growth Status 08/31/24 05:00 Sputum Expectorated Sputum AFB Broth Culture Pending Resulted 08/31/24 05:00 Sputum Expectorated Sputum - Final Resulted 08/31/24 05:00 Sputum Expectorated Sputum - Final Resulted 08/31/24 05:00 Sputum Expectorated Sputum Acid Fast Bacilli Culture Pending Resulted 08/30/24 07:54 Nose MRSA Screen - Final Complete 08/29/24 19:04 Blood Blood Culture - Preliminary NO GROWTH AFTER 72 HOURS OF INCUBATION. Resulted Labs and/or images reviewed: Labs reviewed by me, Image(s) reviewed by me Problem List/Assessment/Plan Problem List/Assessment/Plan Sepsis likely due to pneumonia Gram +/- pneumonia Rule out Neoplasm IV fluids 30cc/kg bolus given NS 100 cc/hour maintenance fluid MRSA screen negative, sputum and blood culture pending CT chest shows 22 x 17 mm round pleural-based consolidation mid right lung field. Findings may represent neoplasm or infection. Recommend follow-up after appropriate clinical therapy. Flu, COVID negative IV vancomycin and IV Levaquin starting 08/30, IV vancomycin switched to IV doxycycline 09/02 Mosaic Floor Layer consulted - Recommend pulmonary follow up as outpatient with repeat CT of the chest CRP elevated at 6.7 DC isolation Respiratory Prelim culture shows Few Gram Positive Cocci in chains Rule out tuberculosis ORDERED TB GOLD QUANTIFERON, BASED ON PATIENT MOVING FROM [place] 40 yrs ago , is currently on ADALIMUMAB, and subpleural location of the consolidation concerning for primary TB Mosaic Floor Layer-ordered AFB smear and culture 1 set of AFB smear negative, pending QuantiFERON TERE on CKD due to VMN due to sepsis-resolving Discontinued NS 100 cc/hour FENA 0.3%, prerenal RA Home medication prednisolone 8 mg daily HTN Resume home medication if hypotensive Diabetes mellitus type 2-hemoglobin A1c 8 Mild sliding scale DVT prophylaxis Lovenox Diabetic diet Plan discussed with patient, mother at bedside, son over the phone in which all questions have been answered Goals of care discussed for more than 20 minutes, full code status Case discussed with Dr. Arevalo Plan discussed with: Patient, Son (At the bedside) My Orders My Orders Orders - SUKI LIU Procedure Category Date Status Time Doxycycline PHA 09/02/24 In Process 100mg/100ml 14:30 Dietary Evaluation Review Comments: 1) refer to CDe on DC 2) COntinue current pOC Expected Outcomes/Goals: To meet >75% estimated needs Fu 3-5 days Date of Service: Sep 02, 2024 Billing Provider: GORDON ZAVALA MD Common Visit Codes: [id number] INP/OBS CARE(HIGH) SUKI LIU Sep 02, 2024 16:20 GORDON ZAVALA MD Sep 05, 2024 10:10
--- NOTE | 2024-09-02 16:40 | DVHPN2 ---
Progress Note - Dictate Date Seen: Sep 02, 2024 Medical Necessity Reason Pt with a Central, PICC or Fol: No vital signs Vital Sign Date Time Temp Pulse Resp B/P (MAP) Pulse Ox O2 Delivery O2 Flow Rate FiO2 09/02/24 09:00 97.9 70 19 107/71 (83) 97 97.9 09/02/24 08:05 Room Air* 0 21 Total Intake and Output 09/01/24 09/01/24 09/02/24 15:00 23:00 07:00 Intake Total 100 ml 1400 ml 1000 ml Balance 100 ml 1400 ml 1000 ml medications Current Medications Medications Dose Ordered Sig/Kalin Route Start Time Stop Time Status Last Admin Dose Admin Enoxaparin Sodium 40 mg DAILY SC 08/30/24 10:00 09/02/24 09:28 40 MG Diagnostic Test (Pha) 1 strip IQ4HR 08/30/24 08:00 09/02/24 16:19 1 STRIP Insulin Human Regular IQ4HR SC 08/30/24 08:00 09/02/24 12:00 3 UNITS Dextrose 50 ml UD PRN IV 08/30/24 05:45 Prednisone 8 mg DAILY PO 08/30/24 10:00 09/02/24 09:28 8 MG Levofloxacin/ Dextrose 100 ml @ 100 mls/hr DAILY IV 08/31/24 10:00 09/02/24 09:27 100 MLS/HR Doxycycline Hyclate 100 ml @ 50 mls/hr Q12H IV 09/02/24 14:30 09/02/24 14:30 50 MLS/HR laboratory and microbiology Laboratory Tests 09/02/24 06:18 09/01/24 05:23 Test 09/02/24 06:18 Range/Units Serum Glucose 111 H 74-106 mg/dL Assessment/Plan continue levaquin vancomycin abx alb/atr await sputum cx Dietary Evaluation Review Comments: 1) refer to CDe on DC 2) COntinue current pOC Expected Outcomes/Goals: To meet >75% estimated needs Fu 3-5 days Plan discussed with: Patient MONROE HOLLAND MD Sep 02, 2024 16:40
[2024-09-02 17:00] VITALS: BP 123/89; PULSE 80; RESP 17; TEMP 97.8; O2SAT 95
[2024-09-02 20:36] VITALS: BP 120/86; PULSE 82; RESP 18; TEMP 98.1; O2SAT 98
[2024-09-03 01:00] VITALS: BP 122/89; PULSE 78; RESP 18; TEMP 98.2; O2SAT 97
[2024-09-03 05:03] VITALS: BP 126/90; PULSE 70; RESP 18; TEMP 98.4; O2SAT 99
[2024-09-03 06:13] LABS: Anion Gap 11 (5-15); Carbon Dioxide 23 mmol/L (20-31); Chloride 105 mmol/L (98-107); Potassium 4.1 mmol/L (3.5-5.1); Sodium 139 mmol/L (136-145)
[2024-09-03 06:17] LABS: Hematocrit 44.9 % (41.0-53.0); Hemoglobin 15.2 g/dL (13.5-17.5); Mean Corpuscular Hemoglobin 30.2 pg (28.0-32.0); Mean Corpuscular Hgb Conc. 33.8 g/dL (32.0-36.0); Mean Corpuscular Volume 89.3 fL (80.0-100.0); Platelet Count (auto) 291 10^3/uL (140-450); Red Blood Cells 5.03 10^6/uL (4.5-5.90); Red Cell Distribution Width 14.7 % (11.8-14.3); White Blood Cell 8.3 10^3/uL (4.4-10.8)
[2024-09-03 06:19] LABS: BUN/Creatinine Ratio 14.4 (10.0-20.0); Blood Urea Nitrogen 19 mg/dL (9-23)
[2024-09-03 06:20] LABS: Basophils % (manual) 0 (0.0-2.0); Blast Cells 0; Eosinophils % (manual) 0 (0-7); Metamyelocytes % 0; Myelocytes % 0
[2024-09-03 06:23] LABS: Glucose 131 mg/dL (74-106)
[2024-09-03 07:01] LABS: Band Neutrophils % (manual) 3; Lymphocytes % (manual) 16 (10.0-50.0)
[2024-09-03 07:02] LABS: Monocytes % (manual) 17 (0-12); Platelet Estimate Adequate; Promyelocytes % 1; Reactive Lymphocytes 3; Smudge Cells 5 /100 WBC
[2024-09-03 07:07] LABS: QuantiFERON-TB Gold Plus Negative (Negative)
[2024-09-03 09:00] VITALS: BP 112/81; PULSE 113; RESP 20; TEMP 99.3; O2SAT 95
[2024-09-03 13:00] VITALS: BP 104/59; PULSE 81; RESP 16; TEMP 99.2; O2SAT 95
--- NOTE | 2024-09-03 14:59 | DVHPN2 ---
Progress Note - Dictate Date Seen: Sep 03, 2024 Medical Necessity Reason Pt with a Central, PICC or Fol: No vital signs Vital Sign Date Time Temp Pulse Resp B/P (MAP) Pulse Ox O2 Delivery O2 Flow Rate FiO2 09/03/24 13:00 99.2 81 16 104/59 (74) 95 99.2 09/03/24 07:30 Room Air* 0 21 Total Intake and Output 09/02/24 09/02/24 09/03/24 15:00 23:00 07:00 Intake Total 100 ml 799 ml 800 ml Balance 100 ml 799 ml 800 ml medications Current Medications Medications Dose Ordered Sig/Kalin Route Start Time Stop Time Status Last Admin Dose Admin Enoxaparin Sodium 40 mg DAILY SC 08/30/24 10:00 09/03/24 08:57 40 MG Diagnostic Test (Pha) 1 strip IQ4HR 08/30/24 08:00 09/03/24 11:37 1 STRIP Insulin Human Regular IQ4HR SC 08/30/24 08:00 09/03/24 11:37 3 UNITS Dextrose 50 ml UD PRN IV 08/30/24 05:45 Prednisone 8 mg DAILY PO 08/30/24 10:00 09/03/24 10:50 8 MG Levofloxacin/ Dextrose 100 ml @ 100 mls/hr DAILY IV 08/31/24 10:00 09/03/24 08:58 100 MLS/HR Doxycycline Hyclate 100 ml @ 50 mls/hr Q12H IV 09/02/24 14:30 09/03/24 14:42 50 MLS/HR laboratory and microbiology Laboratory Tests 09/03/24 05:25 Test 09/03/24 05:25 Range/Units Serum Glucose 131 H 74-106 mg/dL Assessment/Plan continue levaquin vancomycin abx alb/atr await sputum cx no distress Dietary Evaluation Review Comments: 1) refer to CDe on DC 2) COntinue current pOC Expected Outcomes/Goals: To meet >75% estimated needs Fu 3-5 days Plan discussed with: Patient MONROE HOLLAND MD Sep 03, 2024 14:59
--- NOTE | 2024-09-03 16:03 | DVHPNRES ---
Progress Note Date Seen: Sep 03, 2024 Resident Creating Document: ILEANA PATEL RESIDENT Medical Necessity Reason Pt with a Central, PICC or Fol: No Subjective Review of Systems -patient seen and examined. Reports feeling better, AFB smear 1 set negative and QuantiFERON gold negative. Pending repeat AFB smear and QuantiFERON gold. Objective vital signs Vital Sign Date Time Temp Pulse Resp B/P (MAP) Pulse Ox O2 Delivery O2 Flow Rate FiO2 09/03/24 13:00 99.2 81 16 104/59 (74) 95 99.2 09/03/24 07:30 Room Air* 0 21 Total Intake and Output 09/02/24 09/02/24 09/03/24 15:00 23:00 07:00 Intake Total 100 ml 799 ml 800 ml Balance 100 ml 799 ml 800 ml medications Current Medications Medications Dose Ordered Sig/Kalin Route Start Time Stop Time Status Last Admin Dose Admin Enoxaparin Sodium 40 mg DAILY SC 08/30/24 10:00 09/03/24 08:57 40 MG Diagnostic Test (Pha) 1 strip IQ4HR 08/30/24 08:00 09/03/24 11:37 1 STRIP Insulin Human Regular IQ4HR SC 08/30/24 08:00 09/03/24 11:37 3 UNITS Dextrose 50 ml UD PRN IV 08/30/24 05:45 Prednisone 8 mg DAILY PO 08/30/24 10:00 09/03/24 10:50 8 MG Levofloxacin/ Dextrose 100 ml @ 100 mls/hr DAILY IV 08/31/24 10:00 09/03/24 08:58 100 MLS/HR Doxycycline Hyclate 100 ml @ 50 mls/hr Q12H IV 09/02/24 14:30 09/03/24 14:42 50 MLS/HR Examination General: Obese, afebrile, palor, mucosae are moist Cardiovascular: Regular S1 and S2. No murmurs, gallops or rubs. No JVD elevation. No pedal edema Respiratory: Decreased bilateral air entry, mild crackles heard on auscultation. Abdomen: Soft, nontender, nondistended, normoactive bowel sounds, no rebound tenderness, no organomegaly, no masses Genitourinary: Deferred MSK/skin: Mobilizes 4 limbs. Skin is dry and warm Neurological: No motor, no sensitive deficits, normal speech. Pupils are isocoric and reactive. Psych/Mental Status: A/Ox3 laboratory and microbiology Laboratory Tests 09/03/24 05:25 Test 09/03/24 05:25 Range/Units Serum Glucose 131 H 74-106 mg/dL Microbiology Date/Time Source Procedure Growth Status 09/01/24 06:06 Sputum Expectorated Sputum AFB Broth Culture Pending Resulted 09/01/24 06:06 Sputum Expectorated Sputum - Final Resulted 09/01/24 06:06 Sputum Expectorated Sputum - Final Resulted 09/01/24 06:06 Sputum Expectorated Sputum Acid Fast Bacilli Culture Pending Resulted 08/30/24 07:54 Nose MRSA Screen - Final Complete 08/29/24 19:04 Blood Blood Culture - Preliminary NO GROWTH AFTER 72 HOURS OF INCUBATION. Resulted Problem List/Assessment/Plan Problem List/Assessment/Plan Sepsis likely due to pneumonia Gram +/- pneumonia Rule out Neoplasm IV fluids 30cc/kg bolus given NS 100 cc/hour maintenance fluid MRSA screen negative, sputum and blood culture pending CT chest shows 22 x 17 mm round pleural-based consolidation mid right lung field. Findings may represent neoplasm or infection. Recommend follow-up after appropriate clinical therapy. Flu, COVID negative IV vancomycin and IV Levaquin starting 08/30, IV vancomycin switched to IV doxycycline 09/02 Canoe Inspector Final consulted - Recommend pulmonary follow up as outpatient with repeat CT of the chest CRP elevated at 6.7 DC isolation Respiratory Prelim culture shows Few Gram Positive Cocci in chains Rule out tuberculosis ORDERED TB GOLD QUANTIFERON, BASED ON PATIENT MOVING FROM [place] 40 yrs ago , is currently on ADALIMUMAB, and subpleural location of the consolidation concerning for primary TB Canoe Inspector Final-ordered AFB smear and culture 1 set of AFB smear negative, QuantiFERON: Negative TERE on CKD due to VMN due to sepsis-resolving Discontinued NS 100 cc/hour FENA 0.3%, prerenal RA Home medication prednisolone 8 mg daily HTN Resume home medication if hypotensive Diabetes mellitus type 2-hemoglobin A1c 8 Mild sliding scale DVT prophylaxis Lovenox Diabetic diet Goals of care discussed for 20 minutes: full code status Case discussed with Dr. Payton Plan discussed with: Patient Dietary Evaluation Review Comments: 1) refer to CDe on DC 2) COntinue current pOC Expected Outcomes/Goals: To meet >75% estimated needs Fu 3-5 days Date of Service: Sep 03, 2024 Billing Provider: ALEX PAYTON MD Common Visit Codes: [id number] INP/OBS CARE(HIGH) ILEANA PATEL RESIDENT Sep 03, 2024 16:03 ALEX PAYTON MD Sep 05, 2024 11:08
[2024-09-03 17:00] VITALS: BP 110/70; PULSE 87; RESP 18; TEMP 99.2; O2SAT 97
[2024-09-03 21:00] VITALS: BP 114/78; PULSE 80; RESP 18; TEMP 98.9; O2SAT 97
[2024-09-04 00:55] VITALS: BP 110/74; PULSE 84; RESP 18; TEMP 98.6; O2SAT 99
[2024-09-04 05:00] VITALS: BP 107/70; PULSE 80; RESP 18; TEMP 98.9; O2SAT 100
[2024-09-04 06:35] LABS: Basophils # (auto) 0 10 ^3/uL (0-0.2); Basophils % (auto) 0.4 % (0.0-2.0); Eosinophils # (auto) 0 10 ^3/uL (0-0.8); Eosinophils % (auto) 0.2 % (0.0-7.0); Hematocrit 43.4 % (41.0-53.0); Hemoglobin 14.8 g/dL (13.5-17.5); Lymphocytes # (auto) 2.7 10 ^3/uL (0.4-5.4); Lymphocytes % (auto) 29.2 % (10.0-50.0); Mean Corpuscular Hemoglobin 30.6 pg (28.0-32.0); Mean Corpuscular Hgb Conc. 34.1 g/dL (32.0-36.0); Mean Corpuscular Volume 89.7 fL (80.0-100.0); Monocytes # (auto) 1.4 10 ^3/uL (0-1.3); Monocytes % (auto) 15.1 % (0.0-12.0); Neutrophils # (auto) 5.1 10 ^3/uL (1.6-8.6); Neutrophils % (auto) 55.1 % (37.0-80.0); Nucleated Red Blood Cells % 0.1 %; Platelet Count (auto) 264 10^3/uL (140-450); Red Blood Cells 4.84 10^6/uL (4.5-5.90); Red Cell Distribution Width 14.5 % (11.8-14.3); White Blood Cell 9.2 10^3/uL (4.4-10.8)
[2024-09-04 06:44] LABS: Chloride 104 mmol/L (98-107); Potassium 3.7 mmol/L (3.5-5.1); Sodium 138 mmol/L (136-145)
[2024-09-04 06:45] LABS: Anion Gap 11 (5-15); Calcium 9.7 mg/dL (8.7-10.4); Carbon Dioxide 23 mmol/L (20-31)
[2024-09-04 06:50] LABS: Glucose 138 mg/dL (74-106)
[2024-09-04 06:57] LABS: BUN/Creatinine Ratio 12.6 (10.0-20.0); Blood Urea Nitrogen 17 mg/dL (9-23)
[2024-09-04 09:00] VITALS: BP 148/93; PULSE 110; RESP 19; TEMP 97.9; O2SAT 95
[2024-09-04 13:00] VITALS: BP 138/74; PULSE 60; RESP 18; TEMP 100.5; O2SAT 94
[2024-09-04] MEDS ORDERED: DEXTROSE (50%) 50ML SYRG IV PRN (13:00)
[2024-09-04] MEDS ORDERED: DOXY100C PO (14:28)
--- NOTE | 2024-09-04 16:31 | DVHPN2 ---
Progress Note - Dictate Date Seen: Sep 04, 2024 Medical Necessity Reason Pt with a Central, PICC or Fol: No vital signs Vital Sign Date Time Temp Pulse Resp B/P (MAP) Pulse Ox O2 Delivery O2 Flow Rate FiO2 09/04/24 13:00 100.5 60 18 138/74 (95) 94 100.5 09/03/24 20:00 Room Air* 0 21 Total Intake and Output 09/03/24 09/03/24 09/04/24 15:00 23:00 07:00 Intake Total 360 ml 500 ml Output Total 600 ml Balance -240 ml 500 ml medications Current Medications Medications Dose Ordered Sig/Kalin Route Start Time Stop Time Status Last Admin Dose Admin Enoxaparin Sodium 40 mg DAILY SC 08/30/24 10:00 09/04/24 08:37 40 MG Levofloxacin/ Dextrose 100 ml @ 100 mls/hr DAILY IV 08/31/24 10:00 09/04/24 11:29 100 MLS/HR Doxycycline Hyclate 100 ml @ 50 mls/hr Q12H IV 09/02/24 14:30 09/04/24 03:36 50 MLS/HR Diagnostic Test (Pha) 1 strip ACHS 09/04/24 17:00 Insulin Human Regular ACHS SC 09/04/24 17:00 Dextrose 50 ml UD PRN IV 09/04/24 13:00 Prednisone 3 mg DAILY PO 09/05/24 10:00 Prednisone 5 mg DAILY PO 09/05/24 10:00 laboratory and microbiology Laboratory Tests 09/04/24 05:22 Test 09/04/24 05:22 Range/Units Serum Glucose 138 H 74-106 mg/dL Assessment/Plan continue levaquin vancomycin abx alb/atr await sputum cx no acute events Dietary Evaluation Review Comments: 1) refer to CDe on DC 2) COntinue current pOC Expected Outcomes/Goals: To meet >75% estimated needs Fu 3-5 days Plan discussed with: Patient MONROE HOLLAND MD Sep 04, 2024 16:31
[2024-09-04 17:00] VITALS: BP 119/69; PULSE 71; RESP 17; TEMP 98.5; O2SAT 93
--- NOTE | 2024-09-04 17:07 | DVHPNRES ---
Progress Note Date Seen: Sep 04, 2024 Resident Creating Document: SUKI LIU RESIDENT Medical Necessity Reason Pt with a Central, PICC or Fol: No Subjective Review of Systems Mr. Canales is a 58-year-old with rheumatoid arthritis on adalimumab for the past 12 years, diabetes mellitus type 2 for the past 18 years, hypertension who presented to the ER with the chief complaint of shortness of breaths for the past 2 weeks, generalized weakness and chills for the past 4 weeks. 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 He started to get short of breath on exertion for the past 2 weeks. Patient reports that he underwent TB testing before he was prescribed adalimumab and it was negative. Associated symptoms include dry cough for the past week. Past medical history: rheumatoid arthritis on adalimumab for the past 12 years, diabetes mellitus type 2 for the past 18 years, hypertension Past surgical history: None Medication history: Adalimumab, amlodipine, insulin, Jardiance, fenofibrate, folic acid Social history: Born in [place], moved to .. 39 year,, denies lifetime smoking history, alcohol history, drug use. Lives with son and 08/30 - Patient seen and examined at the bedside. Decreased bilateral air entry, mild crackles heard on auscultation. 08/31 - patient seen and examined at the bedside. Reports feeling better, prelim culture shows Few Gram Positive Cocci in chains 09/01-patient seen and examined. Mild crackles on right lower base. Denies fever or chills. NS 100 cc/hour total of 500 cc 09/02-patient seen and examined. Reports feeling better, AFB smear 1 set negative. Pending repeat AFB smear and QuantiFERON gold. Creatinine downtrending to 1.2. IV vanco switched to IV doxy 09/04 - patient seen and examined. 2 AFB smear negative, QuantiFERON gold negative, running fever 100.5. Objective vital signs Vital Sign Date Time Temp Pulse Resp B/P (MAP) Pulse Ox O2 Delivery O2 Flow Rate FiO2 09/04/24 13:00 100.5 60 18 138/74 (95) 94 100.5 09/03/24 20:00 Room Air* 0 21 Total Intake and Output 09/03/24 09/03/24 09/04/24 15:00 23:00 07:00 Intake Total 360 ml 500 ml Output Total 600 ml Balance -240 ml 500 ml medications Current Medications Medications Dose Ordered Sig/Kalin Route Start Time Stop Time Status Last Admin Dose Admin Enoxaparin Sodium 40 mg DAILY SC 08/30/24 10:00 09/04/24 08:37 40 MG Levofloxacin/ Dextrose 100 ml @ 100 mls/hr DAILY IV 08/31/24 10:00 09/04/24 11:29 100 MLS/HR Doxycycline Hyclate 100 ml @ 50 mls/hr Q12H IV 09/02/24 14:30 09/04/24 03:36 50 MLS/HR Diagnostic Test (Pha) 1 strip ACHS 09/04/24 17:00 Insulin Human Regular ACHS SC 09/04/24 17:00 Dextrose 50 ml UD PRN IV 09/04/24 13:00 Prednisone 3 mg DAILY PO 09/05/24 10:00 Prednisone 5 mg DAILY PO 09/05/24 10:00 Examination Obese male patient, lying in the bed, no acute distress General: Obese, afebrile, palor, mucosae are moist Cardiovascular: Regular S1 and S2. No murmurs, gallops or rubs. No JVD elevation. No pedal edema Respiratory: Decreased bilateral air entry, mild crackles heard on auscultation. Abdomen: Soft, nontender, nondistended, normoactive bowel sounds, no rebound tenderness, no organomegaly, no masses Genitourinary: Deferred MSK/skin: Mobilizes 4 limbs. Skin is dry and warm Neurological: No motor, no sensitive deficits, normal speech. Pupils are isocoric and reactive. Psych/Mental Status: A/Ox3 laboratory and microbiology Laboratory Tests 09/04/24 05:22 Test 09/04/24 05:22 Range/Units Serum Glucose 138 H 74-106 mg/dL Microbiology Date/Time Source Procedure Growth Status 09/01/24 06:06 Sputum Expectorated Sputum AFB Broth Culture Pending Resulted 09/01/24 06:06 Sputum Expectorated Sputum - Final Resulted 09/01/24 06:06 Sputum Expectorated Sputum - Final Resulted 09/01/24 06:06 Sputum Expectorated Sputum Acid Fast Bacilli Culture Pending Resulted 08/30/24 07:54 Nose MRSA Screen - Final Complete 08/29/24 19:04 Blood Blood Culture - Final NO GROWTH AFTER 5 DAYS OF INCUBATION. Complete Labs and/or images reviewed: Labs reviewed by me, Image(s) reviewed by me Problem List/Assessment/Plan Problem List/Assessment/Plan Sepsis likely due to pneumonia Gram +/- pneumonia Rule out Neoplasm IV fluids 30cc/kg bolus given NS 100 cc/hour maintenance fluid MRSA screen negative, sputum and blood culture pending CT chest shows 22 x 17 mm round pleural-based consolidation mid right lung field. Findings may represent neoplasm or infection. Recommend follow-up after appropriate clinical therapy. Flu, COVID negative IV vancomycin and IV Levaquin starting 08/30, IV vancomycin switched to IV doxycycline 09/02 International Sales Manager consulted - Recommend pulmonary follow up as outpatient with repeat CT of the chest CRP elevated at 6.7 DC isolation Respiratory culture shows Few Gram Positive Cocci in chains, rare Gram-negative rods Repeat blood culture ordered Rule out tuberculosis ORDERED TB GOLD QUANTIFERON, BASED ON PATIENT MOVING FROM [place] 40 yrs ago , is currently on ADALIMUMAB, and subpleural location of the consolidation concerning for primary TB International Sales Manager-ordered AFB smear and culture 2 set of AFB smear negative, QuantiFERON gold negative TERE on CKD due to VMN due to sepsis-resolving Discontinued NS 100 cc/hour FENA 0.3%, prerenal RA Home medication prednisolone 8 mg daily HTN Resume home medication if hypotensive Diabetes mellitus type 2-hemoglobin A1c 8 Mild sliding scale DVT prophylaxis Lovenox Diabetic diet Plan discussed with patient, mother at bedside, son over the phone in which all questions have been answered Goals of care discussed for more than 20 minutes, full code status Case discussed with Dr. Johnson, repeat blood culture ordered. Plan discussed with: Patient My Orders My Orders Orders - SUKI LIU RESIDENT Procedure Category Date Status Time Glucose Blood PHA 09/04/24 In Process (Accu-Chek Comfort 17:00 Insulin R (Human) PHA 09/04/24 In Process (Insulin R) 17:00 Dextrose 50% Syringe PHA 09/04/24 In Process 13:00 Discharge DISCHARGE 09/04/24 Transmitted 14:24 Schedule For Dc BERNARDINO 09/04/24 In Process Clinic F/U 14:24 Dietary Evaluation Review Comments: 1) refer to CDe on DC 2) COntinue current pOC Expected Outcomes/Goals: To meet >75% estimated needs Fu 3-5 days Date of Service: Sep 04, 2024 Billing Provider: ALEX JOHNSON MD Common Visit Codes: [id number] INP/OBS CARE(HIGH) SUKI LIU RESIDENT Sep 04, 2024 17:07 ALEX JOHNSON MD Sep 05, 2024 11:10
[2024-09-04] MEDS: ACCU-CHEK COMFORT CURVE STRIP VI SCH (17:40)
[2024-09-04] MEDS: InsuLIN REG 1unit/0.01ml Soln (100units/ml) SC SCH (17:40)
[2024-09-04 21:00] VITALS: BP 114/65; PULSE 77; RESP 18; TEMP 97.8; O2SAT 95
[2024-09-04] MEDS: SODIUM CHLORIDE 0.9% 1,000 ML IV ONE (21:14)
[2024-09-04 21:54] LABS: Rapid Influenza A Negative (Negative); Rapid Influenza B Negative (Negative)
[2024-09-04 21:55] LABS: COVID19 ANTIGEN SOFIA FIA NEGATIVE (NEGATIVE)
[2024-09-05] VITALS (7 sets, daily range): BP systolic 109–126; BP diastolic 58–76; PULSE 80–104; RESP 17–19; TEMP 98.1–100.1; O2SAT 94–97
[2024-09-05 07:07] LABS: Chloride 102 mmol/L (98-107); Potassium 4.6 mmol/L (3.5-5.1); Sodium 137 mmol/L (136-145)
[2024-09-05 07:08] LABS: Anion Gap 7 (5-15); Carbon Dioxide 28 mmol/L (20-31)
[2024-09-05 07:09] LABS: Calcium 9.7 mg/dL (8.7-10.4)
[2024-09-05 07:14] LABS: BUN/Creatinine Ratio 11.9 (10.0-20.0); Blood Urea Nitrogen 17 mg/dL (9-23); Glucose 147 mg/dL (74-106)
[2024-09-05] MEDS: predniSONE 5 MG TAB PO SCH (09:12)
[2024-09-05] MEDS: predniSONE 1 MG TAB PO SCH (09:13)
[2024-09-05] MEDS ORDERED: ACETAMINOPHEN 500 MG TAB or CAP PO PRN (09:30)
[2024-09-05] MEDS ORDERED: MORPHINE SULFATE INJ 2 MG/ml SYRG IV PRN (09:30)
[2024-09-05] MEDS ORDERED: HYDROcodone-ACET 5/325MG TAB PO PRN (09:30)
[2024-09-05] MEDS ORDERED: MORPHINE SULFATE 4 MG/ML SYR/VIAL IV PRN (11:30)
[2024-09-05] MEDS: HUMIRA 40 MG/0.8 ML SC SCH (11:43)
--- NOTE | 2024-09-05 12:18 | DVHDSRES ---
Discharge Summary Date of Admission Resident Creating Document: SUKI LIU RESIDENT Aug 29, 2024 at 21:06 Date of Discharge: Sep 04, 2024 Labs/Diagnostic Data: Laboratory Results Test 09/05/24 06:35 09/05/24 05:37 09/04/24 20:50 09/04/24 05:22 Sodium Level 137 mmol/L (136-145) Potassium Level 4.6 mmol/L (3.5-5.1) Chloride Level 102 mmol/L (98-107) Carbon Dioxide Level 28 mmol/L (20-31) Anion Gap 7 (5-15) Blood Urea Nitrogen 17 mg/dL (9-23) Creatinine 1.43 mg/dL (0.700-1.30) Glomerular Filtration Rate Calc 56 mL/min (>90) BUN/Creatinine Ratio 11.9 (10.0-20.0) Serum Glucose 147 mg/dL (74-106) Calcium Level 9.7 mg/dL (8.7-10.4) POC Glucose 153 mg/dl (70-106) Influenza Type A Antigen Negative (Negative) Influenza Type B Antigen Negative (Negative) SARS-CoV-2 Antigen (Rapid) Negative (NEGATIVE) White Blood Count 9.2 10^3/uL (4.4-10.8) Red Blood Count 4.84 10^6/uL (4.5-5.90) Hemoglobin 14.8 g/dL (13.5-17.5) Hematocrit 43.4 % (41.0-53.0) Mean Corpuscular Volume 89.7 fL (80.0-100.0) Mean Corpuscular Hemoglobin 30.6 pg (28.0-32.0) Mean Corpuscular Hemoglobin Concent 34.1 g/dL (32.0-36.0) Red Cell Distribution Width 14.5 % (11.8-14.3) Platelet Count 264 10^3/uL (140-450) Mean Platelet Volume 8.1 fL (6.9-10.8) Neutrophils (%) (Auto) 55.1 % (37.0-80.0) Lymphocytes (%) (Auto) 29.2 % (10.0-50.0) Monocytes (%) (Auto) 15.1 % (0.0-12.0) Eosinophils (%) (Auto) 0.2 % (0.0-7.0) Basophils (%) (Auto) 0.4 % (0.0-2.0) Neutrophils # (Auto) 5.1 10 ^3/uL (1.6-8.6) Lymphocytes # (Auto) 2.7 10 ^3/uL (0.4-5.4) Monocytes # (Auto) 1.4 10 ^3/uL (0-1.3) Eosinophils # (Auto) 0 10 ^3/uL (0-0.8) Basophils # (Auto) 0 10 ^3/uL (0-0.2) Nucleated Red Blood Cells 0.1 % Test 09/03/24 05:25 09/01/24 05:23 08/30/24 16:14 08/30/24 10:29 Differential Total Cells Counted 100.0 (100) Neutrophils % (Manual) 60 (37.0-80.0) Band Neutrophils % (Manual) 3 Lymphocytes % (Manual) 16 (10.0-50.0) Monocytes % (Manual) 17 (0-12) Eosinophils % (Manual) 0 (0-7) Basophils % (Manual) 0 (0.0-2.0) Metamyelocytes % (manual) 0 Myelocytes % (Manual) 0 Promyelocytes % (Manual) 1 Blast Cells % (Manual) 0 Reactive Lymphocytes 3 Smudge Cells 5 /100 WBC Platelet Estimate Adequate Clumped Platelets Few Vancomycin Level Trough 10.3 ug/mL (5-10) Random Vancomycin Level 8.5 ug/mL (5-10) Prothrombin Time 11.9 sec (9.3-11.8) Prothrombin Time INR 1.14 (0.9-1.15) Activated Partial Thromboplast Time 30.7 SEC (24.5-34.5) Test 08/30/24 06:53 08/30/24 03:12 08/29/24 22:14 08/29/24 19:04 C-Reactive Protein High Sensitivity 6.74 mg/dL (<1.0) Vitamin B12 Level 855 pg/mL (211-911) Vitamin D 25-Hydroxy 34.0 ng/mL (30.0-100) Thyroid Stimulating Hormone (TSH) 1.41 uIU/mL (0.55-4.78) TB Test (QFT) Gold Plus Negative (Negative) TB Test (QFT) Nil 2.32 IU/mL (.) TB Test (QFT) Mitogen >10.00 IU/mL (.) TB Test (QFT) Antigen 1 2.24 IU/mL (.) TB Test (QFT) Antigen 2 2.28 IU/mL (.) TB Test (QFT) Criteria Comment (.) Magnesium Level 2.2 mg/dL (1.6-2.6) Lactic Acid Level 1.0 mmol/L (0.4-2.0) Erythrocyte Sedimentation Rate 18 mm/hr (0-20) Hemoglobin A1c 8.0 % A1C (<5.7) Total Bilirubin 0.5 mg/dL (0.2-1.0) Aspartate Amino Transferase (AST) 25 U/L (<34) Alanine Aminotransferase (ALT) 41 U/L (7-40) Alkaline Phosphatase 98 U/L (46-116) Total Protein 7.7 g/dL (5.7-8.2) Albumin 4.6 g/dL (3.2-4.8) Test 08/29/24 18:25 Urine Color Light-yellow (Yellow) Urine Clarity Clear (Clear) Urine pH 5.5 (5.0-9.0) Urine Specific [place] 1.029 (1.001-1.035) Urine Protein Negative (Negative) Urine Ketones Negative (Negative) Urine Blood Negative /uL (Negative) Urine Nitrite Negative (Negative) Urine Bilirubin Negative (Negative) Urine Urobilinogen Normal mg/dL (Negative) Urine Leukocyte Esterase Negative /uL (Negative) Urine RBC 1 /hpf (0 - 3) Urine Microscopic WBC 1 /HPF (0-3) Urine Squamous Epithelial Cells None seen /hpf (<5) Urine Bacteria None seen /hpf (None Seen) Urine Creatinine 90.53 mg/dL (30.0-125.0) Urine Protein/Creatinine Ratio 0.26 Urine Sodium 18 mmol/L (40-220) Urine Glucose 4+ mg/dL (Normal) Urine Total Protein 23.8 mg/dL (1-14) Other Laboratory Tests 09/05/24 06:35 09/04/24 05:22 Brief Hx & Hospital Course: Mr. Canales is a 58-year-old with rheumatoid arthritis on adalimumab for the past 12 years, diabetes mellitus type 2 for the past 18 years, hypertension who presented to the ER with the chief complaint of shortness of breaths for the past 2 weeks, generalized weakness and chills for the past 4 weeks. 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 He started to get short of breath on exertion for the past 2 weeks. Patient reports that he underwent TB testing before he was prescribed adalimumab and it was negative. Associated symptoms include dry cough for the past week. Past medical history: rheumatoid arthritis on adalimumab for the past 12 years, diabetes mellitus type 2 for the past 18 years, hypertension Past surgical history: None Medication history: Adalimumab, amlodipine, insulin, Jardiance, fenofibrate, folic acid Social history: Born in [place], [place],, denies lifetime smoking history, alcohol history, drug use. Lives with son and During the hospitalization,CT chest shows 22 x 17 mm round pleural-based consolidation mid right lung field. Findings may represent neoplasm or infection. Recommend follow-up after appropriate clinical therapy. Flu, COVID negative,- IV vancomycin and IV Levaquin starting 08/30, IV vancomycin switched to IV doxycycline 09/02 as the patient felt better. Patient was kept on airborne precautions to rule out tuberculosis. Water Meter Mechanic consulted, recommended outpatient follow up with repeat CT chest. Respiratory culture shows Few Gram Positive Cocci in chains, rare Gram-negative rods. Blood culture unremarkable. Ordered TB gold QuantiFERON which was unremarkable.2 set of AFB smear negative. Patient reported feeling better, was ambulating. Patient also had TERE with FENA 0.3% which constitutes with vasomotor mediated nephropathy, improved with IV fluids. We continued his home medication prednisone and adalimumab injection. Discharge plan: Tablet doxycycline 100 mg twice daily for 5 days Follow up with primary care physician within 7 days Follow up with trust clerk as outpatient within 7 days Patient's family was briefed every day including his son and mother. Patient and son agreed to discharge planning. Consults/Reason for consult Water Meter Mechanic consulted Operations or Procedures ORDERING PHYSICIAN: KIMBERLY MCINTOSH PROCEDURE(s): CX2CT - CHEST WITHOUT CONTRAST REASON: cough, Sepsis ORDER NUMBER(s): [id number], ACCESSION NUMBER(s): [id number] Procedure: CT CHEST WITHOUT CONTRAST Reason for study/Clinical History: cough, Sepsis Comparison Study: None Exam Date: 08/29/2024 09:21 PM TECHNIQUE: Multidetector CT of the chest was performed from the lung apices to the upper abdomen without the use of intravenous contract. Axial, coronal and sagittal multiplanar reformats were performed. Radiation Dose Information: CT Dose: CTDI volume is 16.53 mGy. Dose-length product is 653.9 mGy*cm The dose indicators for CT are the volume Computed Tomography (CT) Dose Index (CTDIvol) and the Dose Length Product (DLP), and are measured in units of mGy and mGy-cm, respectively. These indicators are not patient dose, but values generated from the CT scanner acquisition factors. The report includes radiation exposure data for exposures received during this examination. FINDINGS: Lower neck: Normal thyroid. Lungs: 22 x 17 mm round consolidation right lung base posteriorly represent infection or neoplasm. Heart/Vascular Structures: Normal heart size. No pericardial effusion. Lymph Nodes: No adenopathy Pleura: No pleural effusion or significant pneumothorax. Musculoskeletal: No acute osseous abnormality. Soft tissues: Normal. Upper abdomen: Limited portions of the upper abdomen are unremarkable. IMPRESSION: 1. 22 x 17 mm round pleural-based consolidation mid right lung field. Findings may represent neoplasm or infection. Recommend follow-up after appropriate clinical therapy. Radiation optimization: All CT scans at this facility use at least one of these dose optimization techniques: automated exposure control mA and/or kV adjustment per patient size (includes targeted exams where dose is matched to clinical indication) or iterative reconstruction. 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 due to sepsis-resolving Rheumatoid arthritis-no exacerbation Hypertension Diabetes mellitus type 2-A1c 8 Discharge Disposition: Home Discharge Instruct/Medications Diet: Consistent carbohydrate, Cardiac 2g Na,low cholest Activity: No Restrictions, As Tolerated Follow Up/Referral: Follow up with primary care physician within 7 days Follow up with trust clerk as outpatient within 7 days Medications: Tablet doxycycline 100 mg twice daily for 5 days Discharge Statement: "Patient was advised to return to the ER or call 911 if any headaches, dizziness, shortness of breath, chest pain, abdominal pain, bleeding, fevers, or worsening of medical condition. Patient was counseled about treatment plan, medications, possible side effects, patientverbalized understanding. All questions were answered to the best of my ability. This discharge took greater then 30 minutes in planning, reviewing documentation, counseling the patient, and discussing with other team members." ASSESSMENT ASSESSMENT Assessment Sepsis likely to Gram-positive and Gram-negative pneumonia Date of Service: Sep 04, 2024 Billing Provider: GORDON ZAVALA MD Common Visit Codes: 53412-SUH/OBS DISCH DAY >30min SUKI LIU RESIDENT Sep 05, 2024 12:18 GORDON ZAVALA MD Sep 06, 2024 09:42
--- NOTE | 2024-09-05 19:04 | DVHPN2 ---
Progress Note - Dictate Date Seen: Sep 05, 2024 Medical Necessity Reason Pt with a Central, PICC or Fol: No vital signs Vital Sign Date Time Temp Pulse Resp B/P (MAP) Pulse Ox O2 Delivery O2 Flow Rate FiO2 09/05/24 17:00 98.1 80 17 115/76 (89) 97 98.1 09/05/24 08:00 Room Air* 0 21 Total Intake and Output 09/04/24 09/04/24 09/05/24 15:00 23:00 07:00 Intake Total 660 ml 700 ml Output Total 600 ml Balance 660 ml 100 ml medications Current Medications Medications Dose Ordered Sig/Kalin Route Start Time Stop Time Status Last Admin Dose Admin Morphine Sulfate 1 mg Q4HPRN PRN IV 09/05/24 09:30 UNV laboratory and microbiology Laboratory Tests 09/05/24 06:35 09/04/24 05:22 Test 09/05/24 06:35 Range/Units Serum Glucose 147 H 74-106 mg/dL Assessment/Plan continue levaquin vancomycin abx alb/atr await sputum cx no distress Dietary Evaluation Review Comments: 1) refer to CDe on DC 2) COntinue current pOC Expected Outcomes/Goals: To meet >75% estimated needs Fu 3-5 days Plan discussed with: Patient MONROE HOLLAND MD Sep 05, 2024 19:04
== END 2024-09-05 18:00 | disposition home or self-care (01) | DRG 720 ==
LOC: ER 17:59 → OVERFLOW 21:06 → WEST WING 08-30 12:17
PROVIDERS: ADMIT Student in an Organized Health Care Education/Training Program; ATTEND Student in an Organized Health Care Education/Training Program
DX: A41.59 Other Gram-negative sepsis (principal); N17.0 Acute kidney failure with tubular necrosis; J15.69 Pneumonia due to other Gram-negative bacteria; J15.9 Unspecified bacterial pneumonia; E11.22 Type 2 diabetes mellitus with diabetic chronic kidney disease; E86.0 Dehydration; J98.11 Atelectasis; M06.9 Rheumatoid arthritis, unspecified; Z20.822 Contact with and (suspected) exposure to COVID-19; I12.9 Hypertensive chronic kidney disease with stage 1 through stage 4 chronic kidney disease, or unspecified chronic kidney disease; N18.9 Chronic kidney disease, unspecified; E78.5 Hyperlipidemia, unspecified; Z82.61 Family history of arthritis; Z82.49 Family history of ischemic heart disease and other diseases of the circulatory system; Z83.3 Family history of diabetes mellitus; Z79.4 Long term (current) use of insulin; Z79.899 Other long term (current) drug therapy; Z89.519 Acquired absence of unspecified leg below knee; Z79.2 Long term (current) use of antibiotics; Z79.84 Long term (current) use of oral hypoglycemic drugs; Z79.02 Long term (current) use of antithrombotics/antiplatelets
CPT/HCPCS: 36415; 70450; 71045; 71250; 80048; 80053; 80202; 81001; 82306; 82570; 82607; 82962; 83036; 83605; 83735; 84156; 84300; 84443; 85007; 85025; 85027; 85610; 85652; 85730; 86141; 87040; 87070; 87081; 87205; 87426; 87804; 96365; 99291; G0378; J1815; J1956; J2543

== ENCOUNTER 2024-11-04 06:08 | Outpatient (CLI) | payer MEDICAID ==
[~2024-11-04 06:08] MED LIST changes: -ADAL40IN2 SC; -ATOR20TA50 PO; -AUG875T PO; +DOXY100C PO; -METH2.5T PO
== END 2024-11-04 17:00 | disposition home or self-care (01) ==
LOC: LAB 06:08
PROVIDERS: ATTEND Internal Medicine
DX: Z12.5 Encounter for screening for malignant neoplasm of prostate (principal); E11.9 Type 2 diabetes mellitus without complications; Z12.11 Encounter for screening for malignant neoplasm of colon
CPT/HCPCS: 82306; G0103; 84153

== ENCOUNTER 2024-11-19 16:35 | Emergency (ER) | payer MEDICAID ==
[~2024-11-19] VITALS: Ht 162.6 cm; Wt 60.0 kg
--- NOTE | 2024-11-19 16:53 | ECG ---
[facility] Test Date: 2024-11-19 Test Time: 16:47:37 Pat Name: MARIO KAUR Department: ED Room: Gender: M Well Shooter: TEMI : 1965 Requested By: RICHIE ADRIAN Order Number: [id number] Reading MD: Arnoldo Ordonez Measurements Intervals [place] Rate: 80 P: 19 ME: 168 QRS: -14 QRSD: 102 T: 48 QT: 348 QTc: 402 Interpretive Statements Sinus rhythm ST elevation, consider inferior injury Electronically Signed On 11-21-2024 14:25:55 PDT by Arnoldo Ordonez Please click the below link to view image of tracing.
[2024-11-19 18:39] LABS: Hematocrit 45.9 % (41.0-53.0); Hemoglobin 15.6 g/dL (13.5-17.5); Mean Corpuscular Hemoglobin 31.2 pg (28.0-32.0); Mean Corpuscular Volume 91.8 fL (80.0-100.0); Nucleated Red Blood Cells % 0.2 %
[2024-11-19 18:52] LABS: Alanine Aminotransferase 22 U/L (7-40); Albumin 4.6 g/dL (3.2-4.8); Alkaline Phosphatase 102 U/L (46-116); Anion Gap 9 (5-15); BUN/Creatinine Ratio 13.0 (10.0-20.0); Blood Urea Nitrogen 22 mg/dL (9-23); Calcium 9.4 mg/dL (8.7-10.4); Carbon Dioxide 27 mmol/L (20-31); Chloride 102 mmol/L (98-107); Lipase 52 U/L (12-53); Potassium 4.4 mmol/L (3.5-5.1); Sodium 138 mmol/L (136-145); Total Protein 7.8 g/dL (5.7-8.2)
[2024-11-19 18:53] LABS: Bilirubin, Total 0.5 mg/dL (0.2-1.0); Glucose 168 mg/dL (74-106)
--- NOTE | 2024-11-19 18:53 | ED.PDOC ---
GI ASSESSMENT HPI Comments 58-year-old male who came to ER for abdominal pain. Patient is status post cholecystectomy. States for the past 2 weeks he has been having intermittent episodes of right upper quadrant abdominal pain, with associated abdominal distention., denies any nausea vomiting or changes in bowel habits Chief Complaint: Abdominal Pain Time Seen by MD: 18:52 Primary Care Provider: ANGY Reviewed Notes: Nurses Notes Allergies: Coded Allergies: NO KNOWN ALLERGIES (Unverified , 04/11/14) Home Meds Active Scripts Cefdinir (Cefdinir) 300 Mg Cap, 1 CAP PO BID for 7 Days, #14 CAP Prov:ANNABEL SUAZO MD 11/19/24 Gabapentin (Once-Daily) (Gabapentin) 300 Mg Tab, 300 MG PO Q6HP PRN, #60 TAB Prov:ANNABEL SUAZO MD 11/19/24 Doxycycline Hyclate (Vibramycin) 100 Mg Cap, 100 MG PO BID for 5 Days, #10 CAP 0 Refills Prov:SUKI LIU RESIDENT 09/04/24 Reported Medications Pantoprazole Sodium Sesquihydr (Pantoprazole Sodium) 40 Mg Tab, 1 TAB PO DAILY for 90 Days, #90 08/30/24 Atorvastatin Calcium (ATORVASTATIN CALCIUM) 40 Mg Tab, 1 TAB PO DAILY for 90 Days, #90 08/30/24 Ezetimibe (Ezetimibe) 10 Mg Tab, 1 TAB PO DAILY for 90 Days, #90 08/30/24 Fenofibrate (FENOFIBRATE) 48 Mg Tab, 1 TAB PO DAILY for 90 Days, #90 08/30/24 Empagliflozin (Jardiance) 10 Mg Tab, 1 TAB PO DAILY for 90 Days, #90 08/30/24 Finerenone (Kerendia) 10 Mg Tab, 1 TAB PO DAILY for 90 Days, #90 08/30/24 Methotrexate (Methotrexate Sodium) 2.5 Mg Tab, 7 TAB PO QWEEKLY for 35 Days, #35 08/30/24 Adalimumab (Humira Pen) 40 Mg/0.8 Ml Inj, 40 MG SC EVERY 2 WEEKS for 28 Days, #2 INJECT 1 PEN (40 MG) SUBCUTANEOUSLY EVERY 2 WEEKS. 08/30/24 Insulin Glargine (Lantus Solostar) 100 Unit/Ml Inj, 30 UNIT SC DAILY for 100 Days, #30 INJECT 30 UNITS SUBCUTANEOUSLY ONCE DAILY PER INSULIN PROTOCOL. 08/30/24 Enalapril Maleate (Enalapril Maleate) 5 Mg Tab, 1 TAB PO DAILY for 90 Days, #90 08/21/22 Prednisone (PREDNISONE) 1 Mg Tb, 8 TAB PO DAILY, #120 TAB 3 Refills 08/21/22 Metformin Hydrochloride (METFORMIN HCL ER) 1,000 Mg Tab, 1000 MG PO BIDBRS, TAB 08/21/22 Insulin Isophane & Reg (Human) (Humulin 70/30 (70-30) 100 Unit/ml) 1 Units/0.01 Ml Inj, 5 UNITS SC QAM, INJ 08/21/22 Gabapentin (Gabapentin) 100 Mg Cap, 100 MG PO TID, CAP 08/21/22 Folic Acid (Folic Acid) 1 Mg Tab, 1 MG PO DAILY, TAB 08/21/22 Amlodipine Besylate (NORVASC TABLET) 5 Mg Tb, 5 MG PO DAILY, TAB 08/21/22 Information Source: Patient Mode of Arrival: Ambulatory Timing: Weeks Duration: Intermittent Prehospital treatment: None Quality: Aching Vomitus: None Stool: Normal Severity: Moderate Recent: None Recent Hx of: Abdominal Surgery Pain Location: RUQ Modifying Factors: Nothing Associated sign and symptoms: Abdominal Pain Past Medical History PAST MEDICAL HISTORY: Arthritis, DM, High Lipids, HTN Surgical History: Cholecystectomy Family History Family History: Reviewed,noncontributory to illness Family History (Other): arthritis Social History Smoker: Non-Smoker Alcohol: Denies ETOH Use Drugs: Denies Drug Use Lives In: Home Constitutional: denies: chills, diaphoresis, fatigue, fever, malaise, sweats, weakness, others EENTM: denies: blurred vision, double vision, ear bleeding, ear discharge, ear drainage, ear pain, ear ringing, eye pain, eye redness, hearing loss, mouth pain, mouth swelling, nasal discharge, nose bleeding, nose congestion, nose pain, photophobia, tearing, throat pain, throat swelling, voice changes, others Respiratory: denies: cough, hemoptysis, orthopnea, SOB at rest, shortness of breath, SOB with excertion, stridor, wheezing, others Cardiovascular: denies: chest pain, dizzy spells, diaphoresis, Dyspnea on exertion, edema, irregular heart beat, left arm pain, lightheadedness, palpitations, PND, syncope, others Gastrointestinal: reports: abdomen distended, abdominal pain; denies: blood str eaked bowels, constipated, diarrhea, dysphagia, difficulty swallowing, hematemesis, melena, nausea, poor appetite, poor fluid intake, rectal bleeding, rectal pain, vomiting, others Genitourinary: denies: burning, dysuria, flank pain, frequency, hematuria, incontinence, penile discharge, penile sore, pain, testicle pain, testicle swelling, urgency, others Neurological: denies: dizziness, fainting, headache, left sided numbness, left sided weakness, numbness, paresthesia, pre-existing deficit, right sided numbness, right sided weakness, seizure, speech problems, tingling, tremors, weakness, others Musculoskeletal: denies: back pain, gout, joint pain, joint swelling, muscle pain, muscle stiffness, neck pain, others Integumetry: denies: bruises, change in color, change in hair/nails, dryness, laceration, lesions, lumps, rash, wounds, others Allergic/Immunocompromised: denies: Difficulty Healing, Frequent Infections, Hives, Itching, others Hematologic/Lymphatic: denies: anemia, blood clots, easy bleeding, easy bruising, swollen glands, others Endocrine: denies: excessive hunger, excessive sweating, excessive thirst, excessive urination, flushing, intolerance to cold, intolerance to heat, unexplained weight gain, unexplained weight loss, others Psychiatric: denies: anxiety, bipolar disorder, depression, hopeless, panic disorder, schizophrenia, sleepless, suicidal, others Physical Exam General Appearance: No Apparent Distress, Normal HEENT: Normal ENT Inspection, Pharynx Normal, TMs Normal Neck: Full Range of Motion, Non-Tender, Normal, Normal Inspection Respiratory: Chest Non-Tender, Lungs Clear, No Accessory Muscle Use, No Respiratory Distress, Normal Breath Sounds Cardiovascular: No Edema, No JVD, No Murmur, No Gallop, Normal Peripheral Pulses, Regular Rate/Rhythm Breast Exam: Deferred Gastrointestinal: No Organomegaly, Non Tender, No Pulsatile Mass, Normal Bowel Sounds, Soft Genitalia: Deferred Pelvic: Deferred Rectal: Deferred Extremities: No calf tenderness, Normal capillary refill, Normal inspection, Normal range of motion, Non-tender, No pedal edema Musculoskeletal : Apperance: Normal Neurologic: Alert, paste maker II-XII nml as Tested, No Motor Deficits, Normal Affect, Normal Mood, No Sensory Deficits Cerebellar Function: Normal Reflexes: Normal Skin: Dry, Normal Color, Warm Lymphatic: No Adenopathy EKG EKG : Pulse Rate (adult): 80 Cardiac Rhythm: NSR Was a procedure done? Was a procedure done?: No GI differential Dx Differential Diagnosis: Diverticular disease, Gastritis/PUD, Gastroenteritis, Hernia, Pancreatitis, PID, UTI, Urolithiasis X-Ray, Labs, Meds, VS Vital Signs Date Time Temp Pulse Resp B/P (MAP) Pulse Ox O2 Delivery O2 Flow Rate FiO2 11/19/24 21:22 98.7 68 20 137/77 (97) 98 98.7 11/19/24 21:22 68 20 98 Room Air 11/19/24 18:53 80 11/19/24 16:47 80 11/19/24 16:38 97.7 82 18 154/92 95 97.7 Lab Test 11/19/24 18:21 Range/Units White Blood Count 6.9 4.4-10.8 10^3/uL Red Blood Count 5.00 4.5-5.90 10^6/uL Hemoglobin 15.6 13.5-17.5 g/dL Hematocrit 45.9 41.0-53.0 % Mean Corpuscular Volume 91.8 80.0-100.0 fL Mean Corpuscular Hemoglobin 31.2 28.0-32.0 pg Mean Corpuscular Hemoglobin Concent 34.0 32.0-36.0 g/dL Red Cell Distribution Width 17.4 H 11.8-14.3 % Platelet Count 205 140-450 10^3/uL Mean Platelet Volume 9.3 6.9-10.8 fL Neutrophils (%) (Auto) 35.7 L 37.0-80.0 % Lymphocytes (%) (Auto) 51.6 H 10.0-50.0 % Monocytes (%) (Auto) 10.2 0.0-12.0 % Eosinophils (%) (Auto) 1.8 0.0-7.0 % Basophils (%) (Auto) 0.7 0.0-2.0 % Neutrophils # (Auto) 2.5 1.6-8.6 10 ^3/uL Lymphocytes # (Auto) 3.5 0.4-5.4 10 ^3/uL Monocytes # (Auto) 0.7 0-1.3 10 ^3/uL Eosinophils # (Auto) 0.1 0-0.8 10 ^3/uL Basophils # (Auto) 0 0-0.2 10 ^3/uL Nucleated Red Blood Cells 0.2 % Sodium Level 138 136-145 mmol/L Potassium Level 4.4 3.5-5.1 mmol/L Chloride Level 102 98-107 mmol/L Carbon Dioxide Level 27 20-31 mmol/L Anion Gap 9 5-15 Blood Urea Nitrogen 22 9-23 mg/dL Creatinine 1.69 H 0.700-1.30 mg/dL Glomerular Filtration Rate Calc 46 >90 mL/min BUN/Creatinine Ratio 13.0 10.0-20.0 Serum Glucose 168 H 74-106 mg/dL Calcium Level 9.4 8.7-10.4 mg/dL Total Bilirubin 0.5 0.2-1.0 mg/dL Aspartate Amino Transferase (AST) 18 13-40 U/L Alanine Aminotransferase (ALT) 22 7-40 U/L Alkaline Phosphatase 102 46-116 U/L Total Protein 7.8 5.7-8.2 g/dL Albumin 4.6 3.2-4.8 g/dL Lipase 52 12-53 U/L Time of 1ST Reevaluation: 18:50 Reevaluation 1ST: Unchanged Patient Education/Counseling: Diagnosis, Treatment Family Education/Counseling: No Family Present SEPSIS Sepsis Screen Date sepsis recognized/suspect: Nov 19, 2024 Time Sepsis recognized/suspect: 1640 Recent Procedure: No On Antibiotic Therapy: No Respiratory Rate >20: No Heart Rate >90: No Temp<36 C (96.8 F) or >38.3 C: No SBP <90 or MAP <65 mmHG: No New Acute Mental Status Change: No Is the patient on CPAP, BIPAP,: No Physician Orders Urinalysis (11/19/24 18:02) Ct Ab Pel Wo Con-No Oral Or Iv (11/19/24 18:46) Vital Signs Date Time Temp Pulse Resp B/P (MAP) Pulse Ox O2 Delivery O2 Flow Rate FiO2 11/19/24 21:22 98.7 68 20 137/77 (97) 98 98.7 11/19/24 21:22 68 20 98 Room Air 11/19/24 18:53 80 11/19/24 16:47 80 11/19/24 16:38 97.7 82 18 154/92 95 97.7 Laboratory Tests Test 11/19/24 18:21 White Blood Count 6.9 10^3/uL (4.4-10.8) Departure 1 Departure Time of Disposition: 20:40 Impression: Primary Impression: Ureteral calculus, right Additional Impression: Renal insufficiency Disposition: HOME / SELF CARE / HOMELESS Condition: Stable e-Prescriptions Cefdinir (Cefdinir) 300 Mg Cap 1 CAP PO BID for 7 Days, #14 CAP Prov: ANNABEL SUAZO MD 11/19/24 Gabapentin (Once-Daily) (Gabapentin) 300 Mg Tab 300 MG PO Q6HP PRN, #60 TAB Prov: ANNABEL SUAZO MD 11/19/24 Discharged With: Self Critical Care Note Critical Care Time?: No Stability Stability form required: No Heart Score Heart Score: Heart Score Response (Comments) Value History N/A 0 EKG N/A 0 Age N/A 0 Risk Factors N/A 0 Troponin N/A 0 Total 0 I personally scribed for ANNABEL SUAZO MD ([email or web address]) on 11/19/24 at 18:53. Electronically submitted by Hemant Piper ([email or web address]). I personally scribed for ANNABEL SUAZO MD ([email or web address]) on 11/19/24 at 18:53. Electronically submitted by Hemant Piper ([email or web address]). ANNABEL SUAZO MD Nov 19, 2024 18:53
--- NOTE | 2024-11-19 19:51 | DVH ---
Exam: CT CT AB PEL WO CON-NO ORAL OR IV History: right flank pain Comparison Study: None TECHNIQUE: Multidetector CT of the abdomen was performed from lung bases to pubic symphysis. Imaging was performed without IV contrast. Axial, coronal and sagittal multiplanar reformats were obtained fr om the axial data set by the technologist. Radiation Dose Information: CT Dose: CTDI volume is 9.43 mGy. Dose-length product is 523.46 mGy*cm FINDINGS: Evaluation of solid organs is limited due to lack of intravenous contrast use. Findings: Lung Bases: No acute or significant lung base finding. Normal heart size. No pleural or pericardial effusion. Liver: The liver is normal in size. No focal lesions. Gallbladder and Biliary Tree: Gallbladder has been surgically removed. Spleen: Unremarkable Pancreas: The pancreas is grossly normal in appearance. Adrenal Glands: Unremarkable Kidneys: Kidneys are grossly normal without calculi or hydronephrosis. Bladder: Grossly unremarkable for degree of distention. Bowel: The stomach is grossly normal in appearance. Small bowel and colon are normal in caliber and d istribution. The appendix is not visualized; however, no secondary findings of acute appendicitis id entified. Ascites: Absent Lymphadenopathy: No mesenteric, retroperitoneal or periportal lymphadenopathy. Abdominal Wall and Mesentery: Unremarkable. Vasculature: The visualized abdominal aorta is normal in size and caliber. Evaluation of abdominal a nd pelvic vessels is limited due to lack of intravenous contrast. Pelvic Organs: Prostate measures 6 x 5.2 cm. There is a 4-5 mm calculus in the pelvis on the right. N o prior studies is may represent a distal right ureteral calculus or may represent a calculus in the right seminal vesicle. Musculoskeletal: No aggressive focal bony lesions, acute fractures or dislocation. Soft tissues: Unremarkable IMPRESSION: 1. No nephrolithiasis or hydronephrosis bilaterally. 2. To 5 mm calculus in the pelvis on the right series 2 image 84. May represent a distal right urete ral calculus or calculus in the seminal vesicle on the right. Consider follow-up CT. The possible red gnostic study would be to do a renal ultrasound evaluate for mild hydronephrosis on the right and to visualize the right ureteral jet in the bladder. Radiation optimization: All CT scans at this facility use at least one of these dose optimization te chniques: automated exposure control mA and/or kV adjustment per patient size (includes targeted exa ms where dose is matched to clinical indication) or iterative reconstruction.
[2024-11-19] MEDS ORDERED: GABA300T4 PO (20:11)
[2024-11-19] MEDS ORDERED: CEFD300C2 PO (20:11)
[2024-11-19 21:22] VITALS: BP 137/77; PULSE 68; RESP 20; TEMP 98.7; O2SAT 98
== END 2024-11-19 21:24 | disposition home or self-care (01) ==
LOC: ER 16:35
DX: N20.1 Calculus of ureter (principal); N28.9 Disorder of kidney and ureter, unspecified; E11.29 Type 2 diabetes mellitus with other diabetic kidney complication; I10 Essential (primary) hypertension; M19.90 Unspecified osteoarthritis, unspecified site; Z79.899 Other long term (current) drug therapy; Z90.49 Acquired absence of other specified parts of digestive tract; Z79.52 Long term (current) use of systemic steroids; Z79.4 Long term (current) use of insulin; Z79.84 Long term (current) use of oral hypoglycemic drugs
CPT/HCPCS: 36415; 74176; 80053; 83690; 85025; 93005

== ENCOUNTER → 2025-03-03 | Outpatient (CLI) | payer MEDICAID ==
[~2025-03-03] MED LIST changes: +CEFD300C2 PO; +GABA300T4 PO
[2025-03-03 07:11] LABS: Albumin 4.6 g/dL (3.2-4.8); Alkaline Phosphatase 98 U/L (46-116); Anion Gap 10 (5-15); BUN/Creatinine Ratio 8.6 (10.0-20.0); Blood Urea Nitrogen 13 mg/dL (9-23); Calcium 10.0 mg/dL (8.7-10.4); Carbon Dioxide 27 mmol/L (20-31); Chloride 102 mmol/L (98-107); Potassium 5.0 mmol/L (3.5-5.1); Sodium 139 mmol/L (136-145); Total Protein 7.9 g/dL (5.7-8.2)
[2025-03-03 07:12] LABS: Bilirubin, Total 0.5 mg/dL (0.2-1.0)
[2025-03-03 07:19] LABS: Alanine Aminotransferase 45 U/L (7-40); Cholesterol 211 mg/dL (< 200); Glucose 130 mg/dL (74-106); HDL Cholesterol 39 mg/dL (40-59); Triglycerides 325 mg/dL (< 150)
== END | disposition home or self-care (01) ==
LOC: LAB 06:07
PROVIDERS: ATTEND Internal Medicine
DX: E11.9 Type 2 diabetes mellitus without complications (principal); E78.5 Hyperlipidemia, unspecified
CPT/HCPCS: 36415; 80053; 80061; 83036

== ENCOUNTER 2025-03-07 15:54 | Outpatient (CLI) | payer MEDICAID | END 2025-03-07 17:00 | disposition home or self-care (01) | LOC: LAB 15:54 | PROVIDERS: ATTEND Internal Medicine | DX: M06.9 Rheumatoid arthritis, unspecified (principal) | CPT/HCPCS: 36415; 85652; 86141 ==